=== PATIENT | female | born 1950 | race Caucasian/White ===

== ENCOUNTER 2025-03-20 14:18 | Outpatient (BNV) | payer MEDICARE, SELFPAY | END 2025-03-20 16:17 | PROVIDERS: Admitting Provider Psychiatry & Neurology Forensic Psychiatry; Visit Provider Student in an Organized Health Care Education/Training Program | DX: Z03.89 Encounter for observation for other suspected diseases and conditions ruled out (principal); Z96.5 Presence of tooth-root and mandibular implants | CPT/HCPCS: 70250; 71045; 74018 ==

== ENCOUNTER 2025-03-20 14:18 | Inpatient (IN) | payer MEDICARE, SELFPAY ==
--- OUTSIDE RECORDS SUMMARY | 2025-03-19 22:07 | XMS_ITS | Encounter Summary ---
Author Organization [facility] Address [address] [place] [id number] Care Team Providers Care Commissioner Of Conciliation Name Role Phone Marion Hooker MODEL BUILDER Primary Care Provider Reason for Visit * Reason Comments Behavioral Health Encounter Details Date Type Department Care Team (Late st Contact Info) Description 03/19/2025 10:07 PM EST - 03/20/2025 12:03 PM EST Emergency [facility] Emergency Department [address] [place] [id number] Zay Cochran MD [facility] Emergency Department [address] [place] [id number] Mild recurrent major depression (Primary Dx) Discharge Disposition: Psychiatric Hospital Social History Tobacco Use Types Packs/Day Years Used Date Smoking Tobacco: Former Cigarettes 1 15 1 967 - 1981 Smokeless Tobacco: Never Tobacco Cessation:Counseling Given: Not Answered Alcohol Use Standard Drinks/Week Comments Not Currently 0 (1 standard drink = 0.6 oz pur e alcohol) Comments Unknown Sex and Gender Information Value Date Recorded Sex Assigned at Female 03/11/2025 1:06 PM EST Legal Sex Female 12:08 PM EDT Gender Identity Female 03/11/2025 1:06 PM EST Sexual Orientation Not on file documented as of this encounter Last Filed Vital Signs Vital Sign Reading Time Taken Comments Blood Pressure 160/105 03/19/2025 9:43 PM EST Pulse 67 03/19/2025 9:43 PM EST Temperature 37 C (98.6 F) 03/19/2025 9:43 PM EST Respiratory Rate 18 03/19/2025 9:43 PM EST Oxygen Saturation 99% 03/19/2025 9:43 PM EST Inhaled Oxygen Concentration - - Weight 68.5 kg (151 lb) 03/19/2025 9:43 PM EST Height 170.2 cm (5' 7 ) 03/19/2025 9:43 PM EST Body Mass Index 23.65 03/19/2025 9:43 PM EST documented in this encounter Functional Status * Are you deaf or do you have serious difficulty hearing? Answer Date of Assessment Author No 03/19/2025 10:09 PM EST Maria Antonia Burger * Are you blind or do you have serious difficulty seeing, even when wearing glasses? Answer Date of Assessment Author No 03/19/2025 10:09 PM EST Maria Antonia Burger * Do you have serious difficulty walking or climbing stairs? Answer Date of Assessment Author Yes 03/19/2025 10:09 PM EST Maria Antonia Burger * Do you have difficulty dressing or bathing? Answer Date of Assessment Author No 03/19/2025 10:09 PM EST Maria Antonia Burger * Because of a physical, mental, or emotional condition, do you have difficulty doing errands alone such as visiting the doctor? Answer Date of Assessment Author No 03/19/2025 10:09 PM EST Maria Antonia Burger documented as of this encounter Mental Status * Because of a physical, mental, or emotional condition, do you have serious difficulty concentrating, remembering, or making decisions? Answer Entry Date Author No 03/19/2025 10:09 PM Maria Antonia Vera documented in this encounter Medications at Time of Discharge atorvaSTATin (LIPITOR) 20 MG tablet 20 MG PO DAILY tablet 10/25/2020 buPROPion (WELLBUTRIN XL) 300 MG 24 hr tablet 300 MG PO DAILY tablet 10/25/2020 lamoTRIgine 200 mg TR24 200 MG PO DAILY tablet 10/25/2020 lisinopriL (ZestriL) 10 MG tablet 10 MG PO DAILY tablet 10/25/2020 documented as of this encounter Progress Notes * Zay Cochran MD - 03/20/2025 8:29 AM EST ED Course as of 03/20/25 0830 SunMar 20, 2025 0642 Pt slept through the night w/o incident. Pt will be signed out to denys HAIDER pending bed search [SB] 0707 Sign out: bed search [NH] 0830 Personal interpretation of EKG: Sinus bradycardia, rate 54, no STEMI [NH] ED Course User Index [NH] Zay Cochran MD [SB] Gissell Penn MD * Massiel Patton - 03/20/2025 7:15 AM EST Behavioral Health Crisis Consult- Contact Note Patient: Barbara Block : 1950 Admit Date: 03/19/2025 Date of Consult: 03/20/2025 Time of Consult: 7:15 AM Narrative: Bed Search Inpatient Unit Referral Date Referral Time Began Review Date Began Review Time Accepted Date Accepted Time Decline Date Decline Time Reason If Decline Comment [facility] Accessible 03/20/25 7:14 AM EST [facility] Accessible 03/20/25 7:14 AM EST [facility] Accessible 03/20/25 7:14 AM EST [facility] 03/20/25 7:14 AM EST [facility] 03/20/25 7:14 AM EST [facility] 03/20/25 7:15 AM EST [facility] Accessible 03/20/25 7:15 AM EST [facility] Accessible 03/20/25 7:15 AM EST [facility] Accessible 03/20/25 7:15 AM EST [facility] 03/20/25 7:15 AM EST [facility] Accessible 03/20/25 7:15 AM EST * Camron Gastelum MS - 03/19/2025 11:05 PM EST This clinician called the ED to evaluated patient. ED states that they currently have one iPad and is currently in use. ED is requesting clinician to try later. documented in this encounter Consult Notes * Camron Gastelum MS - 03/19/2025 11:00 PM ESTAssociated Order(s): BEHAVIORAL HEALTH CRISIS EVALUATION Behavioral Health Crisis Consult - Initial Assessment Patient: Barbara Block : 1950 Admit Date: 03/19/2025 Date of Consult: 03/19/2025 Time of Consult: 2300 Consult Requested by: No att. providers found Reason for Consult: Reason for Consult: Barbara Block, a 74-year-old female, presents at [facility] ED with complaints of feeling depressed and having thoughts of suicide via shooting herself using a gun. Patient reports that she was recently humiliated in public. Patient reports that her (Yobani [phone]). Patient appears anxious and states I don't want to share with everyone in the hospital. Patient reports that she is at the hospital becuase I don't want to live anymore. I am thinking about doing something about that. She says that she recently had a public humiliation and is having a nervous breakdown. Patient says that she will have to buy a gun or take abunch of antidepressants ( which I have ). She reports that she has a history of cutting when she was younger. She denies having a history of suicide attempt. She states that she has a history of inpatient psych about 5 - 7 years ago at [facility]. She denies use of alcohol or drugs. She is on anti depressants. She seems to be having difficulties with memory recall and easily frustrated when she is unable to recall the names of her antidepressants. She states that she recently returned from [place]. She denies HI, AH, VH. She says that people do tap into her phone. Patient is alert and oriented x 3 and presents with organized thoughts and speech patterns with some paranoia. Given that patient is having active SI with plan and intent, she meets sec 12 criteria and thus clinician recommends inpatient psych placement. This clinician consulted with attending Mack Klein and supervisorWendy Smith. Both consuls support inpatient psych placement. Chief Complaint Patient presents with Behavioral Health History of Present Illness: Patient is a 74 y.o. female with past medical and psychiatric history as listed who presented to the hospital on 03/19/2025 for Behavioral Health. Behavioral Health is consulted for suicidal thoughts with plan. The patient is a 74-year-old female. Medical History: has no past medical history on file. has no past surgical history on file. 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 Her smoking use included cigarettes. She started smoking about 58 years ago. She has a 15 pack-year smoking history. She has never used smokeless tobacco. E-Cigarettes/Vaping Questions Responses E-Cigarette/Vaping Use Never User Other: reports no history of drug use. Addiction/Substance Use Substances last used: Never used Prescription Medications: In the past 12 months,have you used any prescription medications just for the feeling, more than prescribed or that were no prescribed for you?: No Substances: In the past 12 months, have you used any drugs?: No Medical and Psychiatric Consequences: Psychosocial Consequences: Social History: reports that she lives with her spouse Socioeconomic History Marital status: Employment Status: Retired Type of Residence: Private residence Children?: Yes Number of Children: 1 History: History status: No Personal History: History of trauma/significant life events/FRANCES?: Yes has no history on file for sexual activity. Family History: Family History[4] Family history of psychiatric illness?: Yes Family history of LB?: Yes Family history of suicidal ideation, attempt or completed suicide?: No Physical Exam: Patient Vitals for the past 24 hrs: BP Temp Temp src Pulse Resp SpO2 Height Weight 03/19/25 2143 (!) 160/105 98.6 ??F (37 ??C) Temporal 67 18 99 % 1.702 m (5' 7 ) 68.5 kg (151 lb) Mental Status Exam: MSE Mental Status Exam: Appearance: stated age; appropriate eye contact Behavior: cooperative Speech: regular rate, regular rhythm, and regular volume Language: Intact Mood: anxious, depressed Affect: Anxious Thought Process: organized, goal-directed, logical, concrete, intact, and linear Thought Content: Endorses Si with plan to take antidepressants or shoot self with a gun Hallucinations: absent Attention: WNL Concentration: WNL Orientation: Person, place, location, date, president Memory: Intact Fund of Knowledge: Intact Impulse control: fair Insight: Impaired Judgment: Impaired Labs, Imaging & Other Studies: Laboratory: Recent lab results have been reviewed and are notable for - see medical chart Results for orders placed or performed during the hospital encounter of 03/19/25 (from the past 24 hours) Basic Metabolic Panel Result Value Ref Range Sodium 138 136 - 145 mmol/L Potassium 3.8 3.4 - 5.1 mmol/L Chloride 103 98 - 107 mmol/L Total CO2/Bicarbonate 23 22 - 32 mmol/L Anion Gap 12 8 - 16 mmol/L BUN 22 5 - 23 mg/dL Creatinine, Blood 0.70 0.40 - 1.00 mg/dL Glucose, Blood 97 74 - 118 mg/dL Calcium 9.7 8.6 - 10.2 mg/dL Estimated GFR(CKD-EPI) 90 mL/min/BSA Plasma Toxicology Screen Result Value Ref Range Acetaminophen Result,Blood <5 0 - 30 ug/mL Alcohol <10 <=10 mg/dL Salicylate Level, Blood <2 (L) 3 - 10 mg/dL CBC and Differential Result Value Ref Range WBC 10.83 4.00 - 11.00 K/uL RBC 4.30 3.80 - 5.40 M/uL Hemoglobin 13.2 11.0 - 16.0 g/dL Hematocrit 40.3 35.0 - 48.0 % MCH 30.7 27.0 - 34.0 pg MCHC 32.8 31.0 - 36.0 g/dL MCV 94 80 - 100 fL RDW 12.6 11.5 - 15.0 % RDW-SD 43.4 fL Platelet Count 214 130 - 400 K/uL MPV 10.1 9.0 - 11.0 fL Neutrophil 63.3 % Lymphocyte 25.8 % Monocyte 7.7 % Eosinophil 2.0 % Basophil 0.3 % Immature Granulocyte ([place], Myelo, Promyelocyte) 0.9 % Absolute Neutrophil Count 6.86 1.90 - 7.50 K/uL Absolute Immature Granulocyte ([place], Myelo, Promyelocyte) 0.10 0.00 - 0.10 K/uL Absolute Lymphocyte Count 2.79 1.20 - 3.40 K/uL Absolute Monocyte Count 0.83 (H) 0.00 - 0.70 K/uL Absolute Eosinophil Count 0.22 0.00 - 0.70 K/uL Absolute Basophil Count 0.03 0.00 - 0.10 K/uL Urinalysis with Reflex to Urine Culture Specimen: Urine, Mid-stream Collection Result Value Ref Range Color, Urine Yellow Yellow Clarity, Urine Clear Clear pH, Urine 5.0 5.0 - 8.0 Protein, Urine Negative Negative Glucose, Urine Negative Negative, 4+ Ketone, Urine Negative Negative Bilirubin, Urine Negative Negative Urobilinogen, Urine Normal Normal Blood, Urine 0.2 mg/dL (A) Negative Leukocyte Esterase, Urine Negative Negative Nitrite, Urine Negative Negative Specific [place], Urine 1.016 1.005 - 1.030 White Blood Cells, Urine 1-4 0-10 cells/HPF cells/HPF Red Blood Cell, Urine 0-2 <=2 cells/HPF Bacteria Urine None Seen None Seen Squamous Epithelial Cells None Seen None Seen, Few /HPF Renal Epithelial Cell None Seen None Seen Transitional Epithelial Cells None Seen None Seen EKG: No studies were reviewed. C-SSRS Screener and SAFE-T: [place] Suicide Severity Rating Scale (C-SSRS) Screener 1) In the past month, have you wished you were or wished you could go to sleep and not wake up?: Yes 2) In the past month, have you actually had any thoughts of killing yourself?: Yes 3) Have you been thinking about how you might do this? (Past 1 Month): Yes If yes, describe (Past 1 Month): Pt states she would shoot herself. States she does not own a gun at this time. 4) Have you had these thoughts and had some intention of acting on them or do you have some intention of acting on them? (Past 1 Month): (Not sure) 5) Have you started to work out or worked out the details of how to kill yourself? Did you intend to carry out this plan? (Past 1 Month): No 6a.) Have you ever done anything, started to do anything, or prepared to do anything to end your life?: No C-SSRS Screener Risk Level: Low History of Psychiatric Diagnosis:: Anxiety disorder/PTSD Presenting Symptoms: Anxiety and/or panic Family History: Mental illness Precipitants/ Stressors/ Interpersonal: History of trauma Change in Treatment: None Access to lethal methods: Ask specifically about presence or absence of a firearm in the home or ease of accessing: No Step 4: Guidelines to Determine Level of Risk and Develop Interventions to LOWER Risk Level Suicide Risk Level Determined by the Clinician : High Suicide Risk Rationale for Suicide Risk Level: SI with plan Management of Suicide Risk: Because the patient is actively suicidal, the patient will be further assessed for psychiatric inpatient level of care Assessment: Patient is a 74 y.o. female with past medical and psychiatric history as above now presents with suicidal thoughts. This clinician spoke with patient's spouse Yobani who reports that patient is having problems with her memory, unhappy most of the time and angry about everything. He says that recently returned from [place]. Barbara Block, a 74-year-old female, presents at [facility] ED with complaints of feeling depressed and having thoughts of suicide via shooting herself using a gun. Patient reports that she was recently humiliated in public. Patient reports that her (Yobani [phone]). Patient appears anxious and states I don't want to share with everyone in the hospital. Patient reports that she is at the hospital becuase I don't want to live anymore. I am thinking about doing something about that. She says that she recently had a public humiliation and is having a nervous breakdown. Patient says that she will have to buy a gun or take a bunch of antidepressants ( which I have ). She reports that she has a history of cutting when she was younger. She denies having a history of suicide attempt. She states that she has a history of inpatient psych about 5 - 7 years ago at [facility]. She denies use of alcohol or drugs. She is on antidepressants. She seems to be having diff iculties with memory recall and easily frustrated when she is unable to recall the names of her antidepressants. She states that she recently returned from [place]. She denies HI, AH, VH. She saysthat people do tap into her phone. Patient is alert and oriented x 3 and presents with organized thoughts and speech patterns with some paranoia. Given that patient is having active SI with plan and intent, she meets sec 12 criteria and thus clinician recommends inpatient psych placement. This clinician consulted with attending Mack Klein and converter supervisor Wendy Smith. Both consuls support inpatient psych placement. Recommendations: sec 12 inpatient psych placement Intervention and Stabilization Services Requested: Psych consult for med stabilization and Psych consult for diagnostic clarification Disposition Recommendation: Inpatient Level of Care Patient meets criteria for opioid use disorder (OUD): No Behavioral Health Diagnosis: F33 Unspecified Depressive Disorder Duration: Time Spent (min): 60 Discussed with Attendance Secretary: Yes, Attendance Secretary Name: Alcon Discussed with Medical Team: Yes . Mack Klein Signed by: Camron Gastelum MS [1] (Not in a hospital admission) [2] [3] [4] No family history on file. documented in this encounter ED Notes * Kenneth Jones RN - 03/19/2025 9:48 PM EST Pt states she had a publicly humilating event happen 2 months ago and since then has been very depressed and suicidal. Pt states she has a long hx of depression. States she has attempted to find a therapist but has been unable to do so. Pt states she plans to use a gun to end her life. Pt does not own a gun and would have to buy one to enact her plan. documented in this encounter Miscellaneous Notes * Psych Progress Note - Nicci Amezquita - 03/20/2025 7:55 AM EST Patient: Barbara Block Accepting Facility: [facility] Facility Address: [address], [address] [place] [address] Accepting MD: Dr. Kimberlyn Marrero Arrival Time: 1:30p Nurse to Nurse Report: They will call the ER AYLA, to be done before PT is sent Other Labs or Needs: Send EKG when it's done to fax: [phone] HCP/Guardian (if applicable): None Reason for Section 12: SI Information Given To: secure chat documented in this encounter Plan of Treatment Not on file documented as of this encounter Procedures Procedure Name Priority Date/Time Associated Diagnosis Comments ECG 12-LEAD STAT 03/20/2025 7:48 AM EST CORONAVIRUS SARS-COV-2, MOLECULAR STAT 03/20/2025 1:12 AM EST DRUG SCREEN, URINE STAT 03/19/2025 10 :52 PM EST URINALYSIS WITH URINE CULTURE REFLEX STAT 03/19/2025 10:52 PM EST CBC AND DIFFERENTIAL STAT 03/19/2025 10:46 PM EST TOXICOLOGY SCREEN, BLOOD STAT 03/19/2025 10:46 PM EST CBC AND DIFFERENTIAL STAT 03/19/2025 10:46 PM EST BASIC METABOLIC PANEL STAT 03/19/2025 10:46 PM EST documented in this encounter Results * ECG 12 lead (03/20/2025 7:48 AM EST) 03/20/2025 7:48 AM EST Narrative [facility] ECG - 03/20/2025 7:48 AM EST See ED note for ECG result information. us Zay Cochran MD ECG ORDERABLES Final Result [facility] ECG * Covid Swab (Rapid & Routine) (03/20/2025 1:12 AM EST) Coronavirus SARS-CoV-2 Negative Negative 03/20/2025 1:54 AM EST [facility] Respiratory NASOPHARYNGEAL SWAB / Unknown Collection / Unknown 03/20/2025 1:12 AM EST 03/20/2025 1:15 AM EST Narrative [facility] - 03/20/2025 1:54 AM EST Test performed with [employer] GeneXpert SARS-CoV-2 PCR assay which has received emergency use authorization (EUA) by the U.S. Food and Drug Administration. Negative results do not preclude SARS-CoV-2 infection and should not be used as the sole basis for treatment or other patient management decisions. us Mack Klein MODEL BUILDER BODY FLUIDS AND STOOLS ORDERAB LES Final Result [facility] [address] [place] [address], [place] * (ABNORMAL) Urinalysis with Reflex to Urine Culture (03/19/2025 10:52 PM EST) Color, Urine Yellow Yellow 03/19/2025 11:49 PM EST [facility] Clarity, Urine Clear Clear 03/19/2025 11:49 PM EST [facility] pH, Urine 5.0 5.0 - 8.0 03/19/2025 11:49 PM EST [facility] Protein, Urine Negative Negative 03/19/2025 11:49 PM EST [facility] Glucose, Urine Negative Negative, 4+ 03/19/2025 11:49 PM EST [facility] Ketone, Urine Negative Negative 03/19/2025 11:49 PM EST [facility] Bilirubin, Urine Negative Negative 03/19/20 11:49 PM EST [facility] Urobilinogen, Urine Normal Normal 03/19/2025 11:49 PM EST [facility] Blood, Urine 0.2 mg/dL(A) Negative 03/19/2025 11:49 PM EST [facility] Leukocyte Esterase, Urine Negative Negative 03/19/2025 11:49 PM EST [facility] Nitrite, Urine Negative Negative 03/19/2025 11:49 PM EST [facility] Specific [place], Urine 1.016 1.005 - 1.030 03/19/2025 11:49 PM EST [facility] White Blood Cells, Urine 1-4 0-10 cells/HPF cells/HPF 03/19/2025 11:49 PM EST [facility] Red Blood Cell, Urine 0-2 <=2 cells/HPF 03/19/2025 11:49 PM EST [facility] Bacteria Urine None Seen None Seen 03/19/2025 11:49 PM EST [facility] Squamous Epithelial Cells None Seen None Seen, Few /HPF 03/19/2025 11:49 PM EST [facility] Renal Epithelial Cell None Seen None Seen 03/19/2025 11:49 PM EST [facility] Transitional Epithelial Cells None Seen None Seen 03/19/2025 11:49 PM EST [facility] Urine MID-STREAM URINE SPECIMEN / Unknown Collection / Unknown 03/19/2025 10:52 PM EST 03/19/2025 11:07 PM EST us Mack Klein MODEL BUILDER URINE ORDERABLES Final Result Performing Organization Address City/State/[facility] Co de Phone Number [facility] [address] [place] [phone], * (ABNORMAL) Drug Screen, Urine (03/19/2025 10:52 PM EST) Pathologist [facility] Amphetamines Screen, Urine Negative Negative 03/20/2025 1:19 AM EST [facility] Barbiturates Screen, Urine Negative Negative 03/20/2025 1:19 AM EST [facility] Benzodiazepine Screen, Urine Negative Negative 03/20/2025 1:19 AM EST [facility] Buprenorphine Screen, Urine Negative Negative 03/20/2025 1:19 AM EST [facility] Cannabinoids Screen, Urine Presumptive Positive(A) Negative 03/20/2025 1:19 AM EST [facility] Cocaine Metabolite Screen, Urine Negative Negative 03/20/2025 1:19 AM EST [facility] Fentanyl Screen, Urine Negative Negative 03/20/2025 1:19 AM EST [facility] Methadone Metabolites Negative Negative 03/20/2025 1:19 AM EST [facility] Methadone Screen, Urine Negative Negative 03/20/2025 1:19 AM EST [facility] Opiates Screen, Urine Negative Negative 03/20/2025 1:19 AM EST [facility] Oxycodone Screen, Urine Negative Negative 03/20/2025 1:19 AM EST [facility] Phencyclidine Screen, Urine Negative Negative 03/20/2025 1:19 AM EST [facility] Creatinine, Jose Urine 65.1 No Established Reference Range mg/dL 03/20/2025 1:19 AM EST [facility] Comment 03/20/2025 1:19 AM EST [facility] Comment: The cut-off concentration for a positive result for each drug is listed below: Drug Cut-off value Amphetamines >1000 ng/mL Barbiturates >200 ng/mL Benzodiazepines >300 ng/mL Buprenorphine >10 ng/mL Cannabinoids >50 ng/mL Cocaine >300 ng/mL Fentanyl >2.0 ng/mL Opiates >300 ng/mL Phencyclidine >25 ng/mL Methadone >300 ng/mL Methadone Metabolites >100 ng/mL Oxycodone >100 ng/mL Tramadol >200 ng/mL This is only a screening; positive results are not confirmed by a second method; The results must be used for medical purposes only. Urine URINE SPECIMEN / Unknown Collection / Unknown 03/19/2025 10:52 PM EST 03/19/2025 11:07 PM EST us Mack Klein NP URINE ORDERABLES Final Result Performing Organization Address [facility]/State/[facility] Co de Phone Number [facility] [address] [place] [address], * (ABNORMAL) CBC and Differential (03/19/2025 10:46 PM EST) WBC 10.83 4.00 - 11.00 K/uL 03/19/2025 11:17 PM EST [facility] RBC 4.30 3.80 - 5.40 M/uL 03/19/2025 11:17 PM EST [facility] Hemoglobin 13.2 11.0 - 16.0 g/dL 03/19/2025 11:17 PM EST [facility] Hematocrit 40.3 35.0 - 48.0 % 03/19/2025 11:17 PM EST [facility] MCH 30.7 27.0 - 34.0 pg 03/19/2025 11:17 PM EST [facility] MCHC 32.8 31.0 - 36.0 g/dL 03/19/2025 11:17 PM EST [facility] MCV 94 80 - 100 fL 03/19/2025 11:17 PM EST [facility] RDW 12.6 11.5 - 15.0 % 03/19/2025 11:17 PM EST [facility] RDW-SD 43.4 fL 03/19/2025 11:17 PM EST [facility] Platelet Count 214 130 - 400 K/uL 03/19/2025 11:17 PM EST [facility] MPV 10.1 9.0 - 11.0 fL 03/19/2025 11:17 PM EST [facility] Neutrophil 63.3 % 03/19/2025 11:17 PM EST [facility] Lymphocyte 25.8 % 03/19/2025 11:17 PM EST [facility] Monocyte 7.7 % 03/19/2025 11:17 PM EST [facility] Eosinophil 2.0 % 03/19/2025 11:17 PM EST [facility] Basophil 0.3 % 03/19/2025 11:17 PM EST [facility] Immature Granulocyte ([place], Myelo, Promyelocyte) 0.9 % 03/19/2025 11:17 PM EST [facility] Absolute Neutrophil Count 6.86 1.90 - 7.50 K/uL 03/19/2025 11:17 PM EST [facility] Absolute Immature Granulocyte ([place], Myelo, Promyelocyte) 0.10 0.00 - 0.10 K/uL 03/19/2025 11:17 PM EST [facility] Absolute Lymphocyte Count 2.79 1.20 - 3.40 K/uL 03/19/2025 11:17 PM EST [facility] Absolute Monocyte Count 0.83(H) 0.00 - 0.70 K/uL 03/19/2025 11:17 PM EST [facility] Absolute Eosinophil Count 0.22 0.00 - 0.70 K/uL 03/19/2025 11:17 PM EST [facility] Absolute Basophil Count 0.03 0.00 - 0.10 K/uL 03/19/2025 11:17 PM EST [facility] Blood PERIPHERAL BLOOD SPECIMEN / Unknown Venipuncture / Unknown 03/19/2025 10:46 PM EST 03/19/2025 11:06 PM EST Mack Klein MODEL BUILDER LAB BLOOD ORDERABLES Final Res ult Performing Organization Address [facility] Co de Phone Number [facility] [address] [place] [address], * (ABNORMAL) Plasma Toxicology Screen (03/19/2025 10:46 PM EST) Acetaminophen Result,Blood <5 0 - 30 ug/mL 03/19/2025 11:37 PM EST [facility] Alcohol <10 <=10 mg/dL 03/19/2025 11:37 PM EST [facility] Salicylate Level, Blood <2(L) 3 - 10 mg/dL 03/19/2025 11:37 PM EST [facility] Blood PERIPHERAL BLOOD SPECIMEN / Unknown Venipuncture / Unknown 03/19/2025 10:46 PM EST 03/19/2025 11:06 PM EST Mack Ernie MODEL BUILDER LAB BLOOD ORDERABLES Final Res ult Performing Organization Address [facility] Co de Phone Number [facility] [address] [place] [address], * Basic Metabolic Panel (03/19/2025 10:46 PM EST) Sodium 138 136 - 145 mmol/L 03/19/2025 11:37 PM EST [facility] Potassium 3.8 3.4 - 5.1 mmol/L 03/19/2025 11:37 PM EST [facility] Chloride 103 98 - 107 mmol/L 03/19/2025 11:37 PM EST [facility] Total CO2/Bicarbonat e 23 22 - 32 mmol/L 03/19/2025 11:37 PM EST [facility] Anion Gap 12 8 - 16 mmol/L 03/19/2025 11:37 PM EST [facility] BUN 22 5 - 23 mg/dL 03/19/2025 11:37 PM EST [facility] Creatinine, Blood 0.70 0.40 - 1.00 mg/dL 03/19/2025 11:37 PM EST [facility] Glucose, Blood 97 74 - 118 mg/dL 03/19/2025 11:37 PM EST [facility] Calcium 9.7 8.6 - 10.2 mg/dL 03/19/2025 11:37 PM EST [facility] Estimated GFR(CKD-EPI) 90 mL/min/BSA 03/19/2025 11:37 PM EST [facility] Blood PERIPHERAL BLOOD SPECIMEN / Unknown Venipuncture / Unknown 03/19/2025 10:46 PM EST 03/19/2025 11:06 PM EST us Mack Klein NP LAB BLOOD ORDERABLES Final Res ult [facility] [address] [place] [address], documented in this encounter Visit Diagnoses Diagnosis 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
--- NOTE | ~2025-03-20 | XR_ITS ---
CLINICAL HISTORY: r/o foreign body for MRI 1 view abdomen Comparison: None provided Findings: No pneumoperitoneum or pneumatosis. No radiopaque foreign body. No acute fractures. IMPRESSION: No radiopaque foreign body identified. This document has been electronically signed by: Jane Hunter MD on 03/20/2025 20:00:39
--- NOTE | ~2025-03-20 | XR_ITS ---
CLINICAL HISTORY: r/o foreign body for MRI 2 view skull Comparison: None provided Findings: Bones are intact. Paranasal sinuses and mastoids are clear. No radiopaque foreign body. Dental implants. IMPRESSION: 1. No radiopaque foreign body. Dental implants. This document has been electronically signed by: Jane Hunter MD on 03/20/2025 19:59:36
--- NOTE | ~2025-03-20 | XR_ITS ---
CLINICAL HISTORY: r/o foreign body for MRI 1 view chest x-ray Comparison: None provided Findings: No consolidation or effusion. Normal size heart. No acute fracture. IMPRESSION: 1. No radiopaque foreign body. This document has been electronically signed by: Jane Hunter MD on 03/20/2025 20:01:01
--- NOTE | ~2025-03-20 | MR_ITS ---
CLINICAL HISTORY: progressive memory impairment MR Brain without gadolinium Comparison: CR - XR SKULL <4V - 03/20/25 18:25 EST Findings: No restricted diffusion. Prominence of the ventricles and sulci are present compatible with age-related volume loss. Scattered periventricular and deep white matter T2/FLAIR hyperintensities reflect chronic sequelae of microangiopathic etiology No intra-axial mass or hemorrhage. No midline shift. No hydrocephalus. Vascular flow voids are intact. The orbits are normal. The sinuses and mastoid air cells are clear. No focal bone lesion. IMPRESSION: No acute intracranial findings. Chronic age related changes, as above. This document has been electronically signed by: Bryan Smith MD on 03/21/2025 13:09:13
[2025-03-20 14:35] VITALS: BP 152/84; PULSE 73; RESP 17; TEMP 36.4; O2SAT 95
--- OUTSIDE RECORDS SUMMARY | 2025-03-20 14:45 | XMS_ITS | Encounter Summary ---
Author Organization [facility] Address [address] [place] [address] Care Team Providers Care Outside Sales Name Role Phone Marion Hooker NP Primary Care Provider Encounter Details Date Type Department Care Team (Latest Contact Info) Description 03/19/2025 Travel Social History Tobacco Use Types Packs/Day Years Used Date Smoking Tobacco: Former Cigarettes 1 15 1 967 - 1981 Smokeless Tobacco: Never Alcohol Use Standard Drinks/Week Comments Not Currently 0 (1 standard drink = 0.6 oz pur e alcohol) Comments Unknown Sex and Gender Information Value Date Recorded Sex Assigned at Female 03/11/2025 1:06 PM EST Legal Sex Female 12:08 PM EDT Gender Identity Female 03/11/2025 1:06 PM EST Sexual Orientation Not on file documented as of this encounter Plan of Treatment Not on file documented as of this encounter Visit Diagnoses Not on filedocumented in this encounter Care Teams Outside Sales Relationship Specialty Start Date End Date Marion Hooker NP [address] [facility] [address] [place] [address] PCP - General 11/20/23 documented as of this encounter
--- OUTSIDE RECORDS SUMMARY | 2025-03-20 14:45 | XMS_ITS | Clinical Summary ---
Author Organization [facility] Address [address] [place] [address] Care Team Providers Care Supervisor Silvering Department Name Role Phone Silvia Coolfer Laney ANIMAL CONTROL SUPERVISOR Primary Care Provider Allergies Active Allergy Reactions Criticality Noted Date Comments Morphine GI Intolerance Low Reaction Type: Allergy; Severity: Mild Propoxyphene Hcl Unknown Reaction Type: Allergy; Severity: Unknown Medications * This document contains information received from the source organization and may not represent a complete record from that organization. lamoTRIgine 200 mg TR24 200 MG PO DAILY tablet 10/25/2020 Active atorvaSTATin (LIPITOR) 20 MG tablet 20 MG PO DAILY tablet 10/25/2020 Active buPROPion (WELLBUTRIN XL) 300 MG 24 hr tablet 300 MG PO DAILY tablet 10/25/2020 Active lisinopriL (ZestriL) 10 MG tablet 10 MG PO DAILY tablet 10/25/2020 Active Active Problems Problem Noted Date Diagnosed Date Unspecified injury of thorax, initial encounter 07/27/2023 Overview (01/16/2024): Edited by TRINO PRESSLEY on 07/27/2023 Other injury of unspecified body region, initial encounter 05/01/2022 Overview (01/16/2024): Edited by ANGELIKA DIOP on 05/01/2022 Laceration without foreign b kai of other part of head, initial encounter 02/21/2021 Overview (01/16/2024): Edited by AGUSTIN SUÁREZ NP on 02/21/2021 Contusion of other part of head, initial encount er 02/21/2021 Overview (01/16/2024): Edited by AGUSTIN SUÁREZ NP on 02/21/2021 Unspecified fall, initial encounter 02/21/2021 Overview (01/16/2024): Edited by AGUSTIN SUÁREZ NP on 02/21/2021 Poisoning by unspecified franci gs, medicaments and biological substances, accidental (unintentional), initial encounter 04/19/2015 Overview (01/16/2024): Edited by ERNESTO WESTBROOK on 04/19/2015 Other symptoms and signs involving appearance an d behavior 04/16/2015 Overview (01/16/2024): Edited by REECE DUQUE on 04/16/2015 Poisoning by unspecified franci gs, medicaments and biological substances, accidental (unintentional), initial encounter 04/16/2015 Overview (01/16/2024): Edited by REECE DUQUE on 04/16/2015 Encounters Date Type Department Care Team Description 03/19/2025 10:07 PM EST - 03/20/2025 12:03 PM EST Emergency [facility] Emergency Department [address] [place] [phone] Zay Cochran MD Mild recurrent major depression (Primary Dx) [facility]charge [facility]position: [facility] 03/19/2025 Travel 03/11/2025 1:15 PM EST Lab [facility] Lab [address] [place] [phone] Francy Grove NP Depression, unspecified; Hypertension, essential; Hyperlipidemia 03/11/2025 Transcribe Orders [address] [phone] Francy Grove NP Depression, unspecified (Primary Dx); Hyperlipidemia; Hypertension, essential from Last 3 Months Immunizations Immunization Administration Dates Next Due Meningococcal Polysaccharide 12/20/2005 Social History Tobacco Use Types Packs/Day Years Used Date Smoking Tobacco: Former Cigarettes 1 15 1 967 - 1982 Smokeless Tobacco: Never Tobacco Cessation:Counseling Given: Not Answered Alcohol Use Standard Drinks/Week Comments Not Currently 0 (1 standard drink = 0.6 oz pur e alcohol) Comments Unknown Sex and Gender Information Value Date Recorded Sex Assigned at Female 03/11/2025 1:06 PM EST Legal Sex Female 12:08 PM EDT Gender Identity Female 03/11/2025 1:06 PM EST Sexual Orientation Not on file Last Filed Vital Signs Vital Sign Reading [...] Mass Index 23.65 03/19/2025 9:43 PM EST Plan of Treatment Health Maintenance Due Date Last Done Comments Depression Screening 1960 Hepatitis C Screening 1966 DTaP,Tdap,and Td Vaccines (1 - Tdap) 11/21/1967 Zoster Vaccine (1 of 2) 1998 Pneumococcal Vaccine: 50+ Years (2 of 2 - PCV20 or PCV21) 11/04/2016 11/05/2015 Lipid Panel 10/28/2024 10/29/2023, 07/0 04/2023, 10/11/2022, Additional history exists COVID-19 Vaccine ( season) 2025 02/26/2025, 02/03/2024, 02/17/2021, Additional history exists Blood Pressure 03/19/2026 03/19/2025 Meningococcal Vaccines Aged Out 12/20/2005 No lo nger eligible based on patient's age to complete this topic FIT Discontinued 10/15/2018, 01/28, 03/27/2016 Medicare Initial AWV [id number] Completed 11/10, 02/02/2017, 11/05/2015 Colonoscopy Discontinued 11/24/2020 Colorectal Cancer Screening Discontinued Breast Cancer Screening Discontinued 10/29/19 24, 10/29/2023, 10/29/2023, Additional history exists Osteoporosis Screening Completed 4, 2023, 12/16/2015 Influenza Vaccine Completed 02/26/2025, , 02/17/2021 CT Colonography Discontinued FOBT Discontinued Meningococcal B Vaccines Aged Out No longer eligible based on patient's age to complete this topic Multitarget Stool DNA (Cologuard) Discontinued Sigmoidoscopy Discontinued Procedures Procedure Name Priority Date/Time Associated Diagnosis Comments ECG 12-LEAD STAT 03/20/2025 7:48 AM EST CORONAVIRUS SARS-COV-2, MOLECULAR STAT 03/20/2025 1:12 AM EST URINALYSIS WITH URINE CULTURE REFLEX STAT 03/19/2025 10:52 PM EST DRUG SCREEN, URINE STAT 03/19/2025 10 :52 PM EST CBC AND DIFFERENTIAL STAT 03/19/2025 10:46 PM EST CBC AND DIFFERENTIAL STAT 03/19/2025 10:46 PM EST TOXICOLOGY SCREEN, BLOOD STAT 03/19/2025 10:46 PM EST BASIC METABOLIC PANEL STAT 03/19/2025 10:46 PM EST XR DXA BONE DENSITY HIP PELVIS OR SPINE AXIAL Routine 2023 12:00 AM EDT LIPID PANEL Routine 10/29/2023 2:33 PM EDT MAMMO SCREENING TOMOSYNTHESIS BILATERAL Routine 10/29/2023 12:00 AM EDT from Last 3 Months or Most Recently Relevant to Health Maintenance Results * ECG 12 lead (03/20/2025 7:48 AM EST) 03/20/2025 7:48 AM EST Narrative [facility] ECG - 03/20/2025 7:48 AM EST See ED note for ECG result information. Zay Cochran MD ECG ORDERABLES Final Result Performing Organization Address [facility] Co de Phone Number [facility] ECG * Covid Swab (Rapid & Routine) (03/20/2025 1:12 AM EST) Coronavirus SARS-CoV-2 Negative Negative 03/20/2025 1:54 AM EST [facility] Respiratory NASOPHARYNGEAL SWAB / Unknown Collection / Unknown 03/20/2025 1:12 AM EST 03/20/2025 1:15 AM EST Narrative [facility] - 03/20/2025 1:54 AM EST Test performed with idemama GeneXpert SARS-CoV-2 PCR assay which has received emergency use authorization (EUA) by the U.S. Food and Drug Administration. Negative results do not preclude SARS-CoV-2 infection and should not be used as the sole basis for treatment or other patient management decisions. Mack Klein NP BODY FLUIDS AND STOOLS ORDERAB LES Final Result Performing Organization Address [facility] Co de Phone Number [facility] [address] [place] [address], [place] * (ABNORMAL) Drug Screen, Urine (03/19/2025 10:52 PM EST) Amphetamines Screen, Urine Negative Negative 03/20/2025 1:19 AM EST [facility] Barbiturates Screen, Urine Negative Negative 03/20/2025 1:19 AM EST [facility] Benzodiazepine Screen, Urine Negative Negative 03/20/2025 1:19 AM EST [facility] Buprenorphine Screen, Urine Negative Negative 03/20/2025 1:19 AM EST [facility] Cannabinoids Screen, Urine Presumptive Positive(A) Negative 03/20/2025 1:19 AM EST [facility] Cocaine Metabolite Screen, Urine Negative Negative 03/20/2025 1:19 AM EST [facility] Fentanyl Screen, Urine Negative Negative 03/20/2025 1:19 AM EST [facility] Methadone Metabolites Negative Negative 03/20/2025 1:19 AM EST [facility] Methadone Screen, Urine Negative Negative 03/20/2025 1:19 AM EST [facility] Opiates Screen, Urine Negative Negative 03/20/2025 1:19 AM EST [facility] Oxycodone Screen, Urine Negative Negative 03/20/2025 1:19 AM EST [facility] Phencyclidine Screen, Urine Negative Negative 03/20/2025 1:19 AM EST [facility] Creatinine, Jose Urine 65.1 No Established Reference Range mg/dL 03/20/2025 1:19 AM EST [facility] Comment 03/20/2025 1:19 AM EST [facility] Comment: The cut-off concentration for a [...] 03/19/2025 11:07 PM EST us Mack Klein ANIMAL CONTROL SUPERVISOR URINE ORDERABLES Final Result [facility] [address] [place] [address], [place] * (ABNORMAL) Urinalysis with Reflex to Urine Culture (03/19/2025 10:52 PM EST) Color, Urine Yellow Yellow 03/19/2025 11:49 PM EST [facility] Clarity, Urine Clear Clear 03/19/2025 11:49 PM EST [facility] pH, Urine 5.0 5.0 - 8.0 03/19/2025 11:49 PM EST [facility] Protein, Urine Negative Negative 03/19/2025 11:49 PM EST [facility] Glucose, Urine Negative Negative, 4+ 03/19/2025 11:49 PM EST [facility] Ketone, Urine Negative Negative 03/19/2025 11:49 PM EST [facility] Bilirubin, Urine Negative Negative 03/19/20 11:49 PM EST [facility] Urobilinogen, Urine Normal Normal 03/19/2025 11:49 PM EST [facility] Blood, Urine 0.2 mg/dL(A) Negative 03/19/2025 11:49 PM EST [facility] Leukocyte Esterase, Urine Negative Negative 03/19/2025 11:49 PM EST [facility] Nitrite, Urine Negative Negative 03/19/2025 11:49 PM EST [facility] Specific [place], Urine 1.016 1.005 - 1.030 03/19/2025 11:49 PM EST [facility] White Blood Cells, Urine 1-4 0-10 cells/HPF cells/HPF 03/19/2025 11:49 PM EST [facility] Red Blood Cell, Urine 0-2 <=2 cells/HPF 03/19/2025 11:49 PM EST [facility] Bacteria Urine None Seen None Seen 03/19/2025 11:49 PM EST [facility] Squamous Epithelial Cells None Seen None Seen, Few /HPF 03/19/2025 11:49 PM EST [facility] Renal Epithelial Cell None Seen None Seen 03/19/2025 11:49 PM EST [facility] Transitional Epithelial Cells None Seen None Seen 03/19/2025 11:49 PM EST [facility] Urine MID-STREAM URINE SPECIMEN / Unknown Collection / Unknown 03/19/2025 10:52 PM EST 03/19/2025 11:07 PM EST us Mack Klein ANIMAL CONTROL SUPERVISOR URINE ORDERABLES Final Result Performing Organization Address City/State/[facility] Co de Phone Number [facility] [address] [place] [phone], [place] * (ABNORMAL) CBC and Differential (03/19/2025 10:46 PM EST) WBC 10.83 4.00 - 11.00 K/uL 03/19/2025 11:17 PM EST [facility] RBC 4.30 3.80 - 5.40 M/uL 03/19/2025 11:17 PM EST [facility] Hemoglobin 13.2 11.0 - 16.0 g/dL 03/19/2025 11:17 PM EST [facility] Hematocrit 40.3 35.0 - 48.0 % 03/19/2025 11:17 PM EST [facility] MCH 30.7 27.0 - 34.0 pg 03/19/2025 11:17 PM EST [facility] MCHC 32.8 31.0 - 36.0 g/dL 03/19/2025 11:17 PM EST [facility] MCV 94 80 - 100 fL 03/19/2025 11:17 PM EST [facility] RDW 12.6 11.5 - 15.0 % 03/19/2025 11:17 PM EST [facility] RDW-SD 43.4 fL 03/19/2025 11:17 PM EST [facility] Platelet Count 214 130 - 400 K/uL 03/19/2025 11:17 PM EST [facility] MPV 10.1 9.0 - 11.0 fL 03/19/2025 11:17 PM EST [facility] Neutrophil 63.3 % 03/19/2025 11:17 PM EST [facility] Lymphocyte 25.8 % 03/19/2025 11:17 PM EST [facility] Monocyte 7.7 % 03/19/2025 11:17 PM EST [facility] Eosinophil 2.0 % 03/19/2025 11:17 PM EST [facility] Basophil 0.3 % 03/19/2025 11:17 PM EST [facility] Immature Granulocyte (Marathon, Myelo, Promyelocyte) 0.9 % 03/19/2025 11:17 PM EST [facility] Absolute Neutrophil Count 6.86 1.90 - 7.50 K/uL 03/19/2025 11:17 PM EST [facility] Absolute Immature Granulocyte (Marathon, Myelo, Promyelocyte) 0.10 0.00 - 0.10 K/uL 03/19/2025 11:17 PM EST [facility] Absolute Lymphocyte Count 2.79 1.20 - 3.40 K/uL 03/19/2025 11:17 PM EST [facility] Absolute Monocyte Count 0.83(H) 0.00 - 0.70 K/uL 03/19/2025 11:17 PM EST [facility] Absolute Eosinophil Count 0.22 0.00 - 0.70 K/uL 03/19/2025 11:17 PM EST [facility] Absolute Basophil Count 0.03 0.00 - 0.10 K/uL 03/19/2025 11:17 PM EST [facility] Blood PERIPHERAL BLOOD SPECIMEN / Unknown Venipuncture / Unknown 03/19/2025 10:46 PM EST 03/19/2025 11:06 PM EST Mack Klein ANIMAL CONTROL SUPERVISOR LAB BLOOD ORDERABLES Final Res ult Performing Organization Address City/[facility]/ZIP Co de Phone Number [facility] [address] [place] [phone], * (ABNORMAL) Plasma Toxicology Screen (03/19/2025 10:46 PM EST) Acetaminophen Result,Blood <5 0 - 30 ug/mL 03/19/2025 11:37 PM EST [facility] Alcohol <10 <=10 mg/dL 03/19/2025 11:37 PM EST [facility] Salicylate Level, Blood <2(L) 3 - 10 mg/dL 03/19/2025 11:37 PM EST [facility] Blood PERIPHERAL BLOOD SPECIMEN / Unknown Venipuncture / Unknown 03/19/2025 10:46 PM EST 03/19/2025 11:06 PM EST Mack [facility] ANIMAL CONTROL SUPERVISOR LAB BLOOD ORDERABLES Final Res ult Performing Organization Address City/[facility]/ZIP Co de Phone Number [facility] [address] [place] [address], [place] * Basic Metabolic Panel (03/19/2025 10:46 PM EST) Sodium 138 136 - 145 mmol/L 03/19/2025 11:37 PM EST [facility] Potassium 3.8 3.4 - 5.1 mmol/L 03/19/2025 11:37 PM EST [facility] Chloride 103 98 - 107 mmol/L 03/19/2025 11:37 PM EST [facility] Total CO2/Bicarbonat e 23 22 - 32 mmol/L 03/19/2025 11:37 PM EST [facility] Anion Gap 12 8 - 16 mmol/L 03/19/2025 11:37 PM EST [facility] BUN 22 5 - 23 mg/dL 03/19/2025 11:37 PM EST [facility] Creatinine, Blood 0.70 0.40 - 1.00 mg/dL 03/19/2025 11:37 PM EST [facility] Glucose, Blood 97 74 - 118 mg/dL 03/19/2025 11:37 PM EST [facility] Calcium 9.7 8.6 - 10.2 mg/dL 03/19/2025 11:37 PM EST [facility] Estimated GFR(CKD-EPI) 90 mL/min/BSA 03/19/2025 11:37 PM EST [facility] Blood PERIPHERAL BLOOD SPECIMEN / Unknown Venipuncture / Unknown 03/19/2025 10:46 PM EST 03/19/2025 11:06 PM EST us Mack Klein ANIMAL CONTROL SUPERVISOR LAB BLOOD ORDERABLES Final Res ult [facility] [address] [place] [address], [place] * XR DXA Bone Density Hip Pelvis or Spine Axial (2023 12:00 AM EDT) Anatomical Region Laterality Modality Pelvis, Spine, Hip Radiographic Imaging 2023 2023 Impressions 2023 10:25 AM EDT FRAX 10 YEAR FRACTURE RISK: Major Osteoporortic Fracture is 10% Hip fracture 1.6 %. Lowest T score measures -1.1. BONE DENSITY GUIDELINES; The World Health Organization criteria for diagnosis in post menopausal females, or males age 50 and over, are as follows: Normal: T score above -1 standard deviation. Osteopenia: T score between -1 and -2.5 standard deviations. Osteoporosis: T score below -2.5 standard deviations. Severe Osteoporosis: T score below -2.5 standard deviations and a history of fracture. FRACTURE RISK; For every 1 standard deviation below young adult mean, fracture risk approximately doubles. Copies of the BMD Data Sheets have been attached for your files. PAGE 1 Signed Report (CONTINUED) DIAGNOSTIC IMAGING REPORT Name: [facility] Phys: MARION COOL NP [address] [place] [address] : 1950 Age: 73 Sex: [place] [address] Acct: [id number] Loc: RAD.A TEL: Exam Date: 2023 Status: REG REF [facility] Unit No: [id number] [facility] Reason For Exam: POSTMENOPAUSAL [facility] Ultrasound Exams: [id number] ABONE/BONE DENSITY AXIAL/HIP/SP Continued Electronically Signed: 2023 1442 Signed By: Augustin Shabazz Reported By: AUGUSTIN SHABAZZ MD CC: MARION COOL NP Technologist: CARLTON RODRÍGUEZ Taken Date/Time: 2023 (5496) Transcribed Date/Time: 2023 (3562) Rn Child: CHAZ Printed Date/Time: 12/09/2023 (5063) PAGE 2 Signed Report Narrative 2023 10:25 AM EDT DIAGNOSTIC IMAGING REPORT Name: [facility] Phys: MARION COOL NP [address] [place] [address] : 1950 Age: 73 [place]: [place] [address] Acct: [id number] Loc: RAD.A TEL: Exam Date: 2023 Status: GUIDO LYLES [facility] Unit No: [id number] [facility] Reason For Exam: POSTMENOPAUSAL [facility] Ultrasound Exams: [id number] ABONE/BONE DENSITY AXIAL/HIP/SP PROCEDURE: Bone densitometry: 2023 INDICATION: POSTMENOPAUSAL COMPARISON: None TECHNIQUE: DXA densitometry of the lumbar spine and left hip was performed utilizing a Hologic Discovery SL bone densitometer. FINDINGS: Calculated bone mineral density from L1 through L4 measures 0.971 g/cm2, T score -0.7, Z score 1.6. Bone density in the left femoral neck measures 0.723 g/cm2, T score -1.1, Z score 0.9. Procedure Note Augustin Shabazz MD - 03/04/2024 DIAGNOSTIC IMAGING REPORT Name: [facility] Phys: MARION COOL NP [address] [place] [address] : 1950 Age: 73 Sex:[place] Acct: [id number] Loc: RAD.A TEL: Exam Date: 2023 Status: JAVIER [facility] Unit No: [id number] [facility] Reason For Exam: POSTMENOPAUSAL [facility] Ultrasound Exams: [id number] ABONE/BONE DENSITY AXIAL/HIP/SP PROCEDURE: Bone densitometry: 2023 INDICATION: POSTMENOPAUSAL COMPARISON: None TECHNIQUE: DXA densitometry of the lumbar spine and left hip was performed utilizing a Hologic Discovery SL bone densitometer. FINDINGS: Calculated bone mineral density from L1 through L4 measures 0.971 g/cm2, T score -0.7, Z score 1.6. Bone density in the left femoral neck measures 0.723 g/cm2, T score -1.1, Z score 0.9. IMPRESSION: FRAX 10 YEAR FRACTURE RISK: Major Osteoporortic Fracture is 10% Hip fracture 1.6 %. Lowest T score measures -1.1. BONE DENSITY GUIDELINES; The World Health Organization criteria for diagnosis in post menopausal females, or males age 50 and over, are as follows: Normal: T score above -1 standard deviation. Osteopenia: T score between -1 and -2.5 standard deviations. Osteoporosis: T score below -2.5 standard deviations. Severe Osteoporosis: T score below -2.5 standard deviations and a history of fracture. FRACTURE RISK; For every 1 standard deviation below young adult mean, fracture risk approximately doubles. Copies of the BMD Data Sheets have been attached for your files. PAGE 1 Signed Report (CONTINUED) DIAGNOSTIC IMAGING REPORT Name: [facility] Phys: MARION COOL NP [address] [place] [address] : 1950 Age: 73 Sex:[place] [address] Acct: [id number] Loc: RAD.A TEL: Exam Date: 2023 Status: [facility] Unit No: [id number] [facility] Reason For Exam: POSTMENOPAUSAL [facility] Ultrasound Exams: [id number] ABONE/BONE DENSITY AXIAL/HIP/SP Continued Electronically Signed: 2023 1442 Signed By: Augustin Shabazz Reported By: AUGUSTIN SHABAZZ MD CC: MARION COOL NP Technologist: CARLTON RODRÍGUEZ Taken Date/Time: 2023 (5054) Transcribed Date/Time: 2023 (8761) Rn Child: CHAZ Printed Date/Time: 12/09/2023 (9297) PAGE 2 Signed Report Marion Cool NP IMG DIAGNOSTIC IMAGING ORDERABLES Final Result * Lipid Panel (10/29/2023 2:33 PM EDT) Cholesterol 187 0 - 200 mg/dL CONVERSION FROM [facility] Triglycerides 114 0 - 150 mg/dL CONVERSION FROM [facility] HDL Cholesterol 74 >=60 mg/dL CON VERSION FROM [facility] Direct LDL Cholesterol 99 0 - 100 mg/dL CONVERSION FROM [facility] Ratio Chol/HDL 3 0 - 5 CONVE RSION FROM [facility] 10/29/2023 2:33 PM EDT 10/29/2023 2:33 PM EDT Marion Cool NP LAB BLOOD ORDERABLES Fi nal Result CONVERSION FROM [facility] * Mammo Screening Tomosynthesis Bilateral (10/29/2023 12:00 AM EDT) Anatomical Region Laterality Modality Breast Bilateral Mammography 10/29/2023 10/29/2023 Narrative 10/29/2023 2:18 PM EDT DIAGNOSTIC IMAGING REPORT Name: [facility] Phys: MARION COOL NP [address] [place] [address] : 1950 Age: 72 Sex: [place] [address] Acct: [id number] Loc: RAD TEL: Exam Date: 10/29/2023 Status: REG REF [facility] Unit No: [id number] [facility] Reason For Exam: ROUTINE MAMMOGRAM [facility] Ultrasound Exams: [id number] ABBY/MAMM SCREENING 2D/3D W/CAD REASON FOR EXAM: screening, asymptomatic. PATIENT HISTORY: Patient is postmenopausal and is nulliparous. Benign excisional biopsy of the right breast, 1987. Baseline mammogram. RISK VALUE (s): Tyrer-Cuzick 10 Year: 4.5%, Tyrer-Cuzick Lifetime: 5.0%, Myriad Table: 1.5%, EPI 5 Year: 2.5%, NCI Lifetime: 5.8% PROCEDURE: Screening [facility] Mammogram: October 29, 2023 - Exam #: [id number] 2D/3D Procedure 3D Bilateral CC and MLO view(s) were taken. 2D Bilateral CC and MLO view(s) were taken. No prior studies available for comparison. There are scattered areas of fibroglandular density. No architectural distortion, masses, or suspicious microcalcifications. ACR BI-RADS Assessments: BI-RADS Category 1 (Negative) No mammographic evidence of malignancy. RECOMMENDATION: Routine screening mammogram in 1 year. A letter will be sent to the patient stating this recommendation. This patient's information was entered into a reminder system with a target due date for the next mammogram. PAGE 1 Signed Report (CONTINUED) DIAGNOSTIC IMAGING REPORT Name: [facility] Phys: MARION COOL NP [address] [place] [address] : 1950 Age: 72 Sex: [place] [address] Acct: [id number] Loc: RAD TEL: Exam Date: 10/29/2023 Status: REG REF [facility] Unit No: [id number] [facility] Reason For Exam: ROUTINE MAMMOGRAM [facility] Ultrasound Exams: [id number] [facility]/MAMM SCREENING 2D/3D W/CAD Continued Electronically Signed: 10/30/2023 1532 Reported By: DARIA TRUJILLO MD CC: MARION COOL NP Technologist: ALAINA LAI Taken Date/Time: 10/29/2023 (1418) Transcribed Date/Time: 10/30/2023 (1536) Rn Child: [id number] Printed Date/Time: 11/02/2023 (1126) PAGE 2 Signed Report Procedure Note Daria Trujillo MD - 03/04/2024 DIAGNOSTIC IMAGING REPORT Name: [facility] Phys: MARION COOL NP [address] [place] [address] : 1950 Age: 72 Sex:[place] [address] Acct: [id number] Loc: RAD TEL: Exam Date: 10/29/2023 [facility] Unit No: [id number] [facility] Reason For Exam: ROUTINE MAMMOGRAM [facility] Ultrasound Exams: [id number] ABBY/MAMM SCREENING 2D/3D W/CAD REASON FOR EXAM: screening, asymptomatic. PATIENT HISTORY: Patient is postmenopausal and is nulliparous. Benign excisional biopsy of the right breast, 1987. Baseline mammogram. RISK VALUE (s): Tyrer-Cuzick 10 Year: 4.5%, Tyrer-Cuzick Lifetime: 5.0%, Myriad Table: 1.5%, EPI 5 Year: 2.5%, NCI Lifetime: 5.8% PROCEDURE: Screening [facility] Mammogram: October 29, 2023 - Exam #: [id number] 2D/3D Procedure 3D Bilateral CC and MLO view(s) were taken. 2D Bilateral CC and MLO view(s) were taken. No prior studies available for comparison. There are scattered areas of fibroglandular density. No architectural distortion, masses, or suspicious microcalcifications. ACR BI-RADS Assessments: BI-RADS Category 1 (Negative) No mammographic evidence of malignancy. RECOMMENDATION: Routine screening mammogram in 1 year. A letter will be sent to the patient stating this recommendation. This patient's information was entered into a reminder system with a target due date for the next mammogram. PAGE 1 Signed Report (CONTINUED) DIAGNOSTIC IMAGING REPORT Name: [facility] Phys: MARION COOL NP [address] [place] [address] : 1950 Age: 72 Sex:[place] [address] Acct: [id number] Loc: RAD TEL: Exam Date: 10/29/2023 Status: [facility] Unit No: [id number] [facility] Reason For Exam: ROUTINE MAMMOGRAM [facility] Ultrasound Exams: [id number] ABBY/MAMM SCREENING 2D/3D W/CAD Continued Electronically Signed: 10/30/2023 1532 Reported By: DARIA TRUJILLO MD CC: MARION COOL NP Technologist: ALAINA LAI Taken Date/Time: 10/29/2023 (1418) Transcribed Date/Time: 10/30/2023 (1536) Rn Child: CHAZ Printed Date/Time: 11/02/2023 (1120) PAGE 2 Signed Report us Marion Cool NP IMG MAMMOGRAPHY ORDERAB LES Final Result from Last 3 Months or Most Recently Relevant to Health Maintenance Insurance [address] [place] [address] MEDICARE MEDICARE Member Subscriber Plan / Payer ( fective 2013-Present) Name:Barbara Block Member ID:[id number] Relation to Subscriber:Self Name:Barbara Block Subscriber ID:[id number] Payer ID:Not on file Group ID:Not on file Type:Traditional / Indemnity Address: [address] [place] [phone] [address] [place] [address] MEDICARE Care Teams Supervisor Silvering Department Relationship Specialty Start Date End Date Marion Cool NP [address] [facility] [address] [place] [address] PCP - General 11/20/23
--- OUTSIDE RECORDS SUMMARY | 2025-03-20 14:45 | XMS_ITS | Encounter Summary ---
Author Organization [facility] Address [address] [place] [address] Care Team Providers Care High Reach Operator Name Role Phone [place] Marion Laney PARTNERSHIP MARKETING MANAGER Primary Care Provider Encounter Details Date Type Department Care Team (Late st Contact Info) Description 03/11/2025 Transcribe Orders [facility] [address] [place] [address] [phone] Francy Grove NP [address] [place] [address] Depression, unspecified (Primary Dx); Hyperlipidemia; Hypertension, essential Social History Tobacco Use Types Packs/Day Years Used Date Smoking Tobacco: Never Assessed Comments Unknown Sex and Gender Information Value Date Recorded Sex Assigned at Female 03/11/2025 1:06 PM EST Legal Sex Female 12:08 PM EDT Gender Identity Female 03/11/2025 1:06 PM EST Sexual Orientation Not on file documented as of this encounter Plan of Treatment Scheduled Orders Name Type Priority Associated Diagnoses Orde r Schedule CBC and Differential Lab Panel Routine Depression, unspecified Expected: 03/11/2025 (Approximate), Expires: 03/11/2026 TSH with Reflex Lab Routine Depression, unspecified Expected: 03/11/2025 (Approximate), Expires: 03/11/2026 Vitamin D, 25-OH Lab Routine Depression, unspecified Expected: 03/11/2025 (Approximate), Expires: 03/11/2026 Comprehensive Metabolic Panel Lab Routine Hypertension, essential Expected: 03/11/2025 (Approximate), Expires: 03/11/2026 Lipid Panel Lab Routine Hyperlipidemia Expected: 03/11/2025 (Approximate), Expires: 03/11/2026 Hemoglobin A1C Lab Routine Hyperlipidemia Expected: 03/11/2025 (Approximate), Expires: 03/11/2026 documented as of this encounter Visit Diagnoses Diagnosis Depression, unspecified- Primary Hyperlipidemia Other and unspecified hyperlipidemia Hypertension, essential Unspecified essential hypertension documented in this encounter Care Teams High Reach Operator Relationship Specialty Start Date End Date Marion Hooker NP [address] [address] PCP - General 11/20/23 documented as of this encounter
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
--- OUTSIDE RECORDS SUMMARY | 2025-03-20 14:45 | XMS_ITS | Clinical Summary ---
Author Organization Formerly [facility] Address [address] [place] [address] Phone Care Team Providers Care Quiller Tender Name Role Phone Pcp, Unknown Primary Care Provider Unavailabl e Medications lamoTRIgine (LAMICTAL) 200 MG tablet Take 200 mg by mouth daily. Active buPROPion (WELLBUTRIN XL) 300 MG ER 24 hr tablet Take 300 mg by mouth daily. Active lisinopril (PRINIVIL,ZESTRI L) 10 MG tablet Take 10 mg by mouth daily. Active atorvastatin (LIPITOR) 20 MG tablet Take 20 mg by mouth daily. Active Family History Medical History Relation Comments Allergic rhinitis Mother Relation Status Comments Mother Social History Tobacco Use Types Packs/Day Years Used Date Smoking Tobacco: Former Cigarettes 0 05/29/1964 - 05/29/1980 Smokeless Tobacco: Never Alcohol Use Standard Drinks/Week Comments Never 0 (1 standard drink = 0.6 oz pur e alcohol) Education Answer Date Recorded Are you interested in more education? Not on brandt e 08/24/2022 Are you concerned about learning? Not on file 08/24/2022 No 08/24/2022 No 08/24/2022 Digital Access Answer Date Recorded No 09/25/2022 No 09/25/2022 Reliable internet access at home? Not on file 09/25/2022 Device with a working camera? Not on file Comments Unknown Sex and Gender Information Value Date Recorded Sex Assigned at Female 03/01/2020 3:44 PM EST Legal Sex Female 7:12 PM EST Gender Identity Female 03/01/2020 3:44 PM EST Sexual Orientation Bisexual 03/01/2020 3: 44 PM EST Plan of Treatment Health Maintenance Due Date Last Done Comments Adult Td,Tdap Booster 1948 CREATININE LEVEL 1948 LIPID PANEL 1948 POTASSIUM LEVEL 1948 DEPRESSION SCREENING 1960 SMOKING Hx and SMOKELESS TOB ACCO SCREENING 1961 HEPATITIS C SCREENING 1966 PNEUMOCOCCAL VACCINES (50+ y ears) (1 of 1 - PCV) 1998 ZOSTER VACCINES (1 of 2) 1998 OSTEOPOROSIS SCREENING INITI AL (ONE-TIME) 2013 RSV VACCINE (1 - 1-dose 75+ series) 11/21/2023 INFLUENZA VACCINE (#1) 2024 COVID-19 VACCINE (2 - 2024-2 6 season) 2024 06/12/2020 HEPATITIS A VACCINES Aged Out No long er eligible based on patient's age to complete this topic HIB VACCINES Aged Out No longer eligi ble based on patient's age to complete this topic MENINGOCOCCAL VACCINES (ACWY) Aged Out No longer eligible based on patient's age to complete this topic MENINGOCOCCAL VACCINES (B) Aged Out N o longer eligible based on patient's age to complete this topic Medical Devices Not on file Insurance MEDICARE PART A & B [facility] INDEMNITY MEDICARE PART A & B [facility] INDEMNITY MEDICARE PART A & B [facility] INDEMNITY MEDICARE PART A & B [facility] INDEMNITY MEDICARE PART A & B [facility] INDEMNITY MEDICARE PART A & B [facility] IN[facility] MEDIC[facility] A & B [facility] IN[facility] MEDICARE PART A & B [facility] [facility] OUT OF STATE INDEMNITY MEDICARE PART A & B [facility] INDEMNITY Care Teams Quiller Tender Relationship Specialty Start Date End Date Pcp, Unknown PCP - General 03/01/20 Additional Source Comments The information contained in this document represents components of the legal health record. It is not the complete legal health record.[facility]
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
--- OUTSIDE RECORDS SUMMARY | 2025-03-20 14:46 | XMS_ITS | Clinical Summary ---
Author Organization [facility] Address [address] [place] [address] Care Team Providers Care Buzzsaw Operator Name Role Phone Foreign Dobbins MD Unavailable [phone] Marion Hooker NP Primary Care Provider Medications atorvastatin (Lipitor) 20 mg tablet Take 20 mg by mouth in the morning. 06/09/2021 Active buPROPion XL (Wellbutrin XL) 300 mg 24 hr tablet Take 300 mg by mouth in the morning. 06/17/2021 Active esomeprazole (NexIUM) [address] capsule Take 20 mg by mouth at bedtime. 01/10/2021 Active famotidine (Pepcid) 20 mg tablet Take 20 mg by mouth at bedtime. 01/10/2021 Active lamoTRIgine (LaMICtal) 200 mg tablet Take 1 tablet by mouth at bedtime. 06/17/2021 Active lisinopril 10 mg tabletIndications :Essential hypertension Take 1 tablet (10 mg) by mouth in the morning. 30 tablet 1 09/20/2021 Active Social History Tobacco Use Types Packs/Day Years Used Date Smoking Tobacco: Never Assessed Comments Unknown Sex and Gender Information Value Date Recorded Sex Assigned at Not on file Legal Sex Female 9:49 PM EST Gender Identity Female 10/18/2023 4:07 PM EDT Sexual Orientation Not on file Last Filed Vital Signs Vital Sign Reading Time Taken Comments Blood Pressure 138/78 02/28/2021 1:03 PM EDT Pulse 62 02/28/2021 1:03 PM EDT Temperature - - Respiratory Rate 16 02/28/2021 1:03 PM EDT Oxygen Saturation - - Inhaled Oxygen Concentration - - Weight - - Height 170.8 cm (5' 7.25 ) 02/28/2021 1:03 PM ED T Body Mass Index - - Plan of Treatment Not on file Insurance MEDICARE PART A AND B [facility] Care Teams Buzzsaw Operator Relationship Specialty Start Date End Date Marion Hooker NP [address] [facility] [address] [place] [address] PCP - General Family Medicine 10/18/23 Foreign Dobbins MD [address] [place] [address] [address] [place] [address] 06/03/21
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
[2025-03-20 17:18] VITALS: BMI 23.5
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
[2025-03-20 20:00] VITALS: BP 101/65; PULSE 66; RESP 16; TEMP 36.7; O2SAT 98
[2025-03-21 07:55] VITALS: BP 145/83; PULSE 89; RESP 18; TEMP 36.6; O2SAT 98
[2025-03-21] MEDS: buPROPion HCl XL 150 MG TAB.ER.24H PO (08:26)
[2025-03-21 09:01] LABS: Alanine Aminotransferase 22 U/L (0-31); Albumin Level 4.7 g/dL (3.5-5.0); Alkaline Phosphatase 102 U/L (39-117); Anion Gap 15 (12-20); Aspartate Amino Transferase 32 U/L (5-31); Blood Urea Nitrogen 15 mg/dL (9-16); Calcium 10.2 mg/dL (8.4-10.2); Carbon Dioxide 24 mmol/L (22-29); Chloride 105 mmol/L (96-108); Cholesterol 233 mg/dL (<200); Creatinine Clr Calc Pharmacy 66.5; Estimated Glomerular Filt Rate > 60; HDL Cholesterol 95 mg/dL (>40); Potassium 4.1 mmol/L (3.3-5.1); Sodium 140 mmol/L (135-145); Total Protein 8.0 g/dL (6.5-8.0); Triglycerides 91 mg/dL (<150)
[2025-03-21 09:15] LABS: Thyroid Stimulating Hormone 2.75 uIU/mL (0.32-4.0)
[2025-03-21 09:27] LABS: Folate 13.4 ng/mL (> or = 4.0); Vitamin B12 492 pg/mL (200-900)
--- NOTE | 2025-03-21 11:36 | HO.PSYCHPN ---
Subjective Subjective Date of Service: 03/21/25 Reason For Visit: Unspecified Depressive disorder Subjective Notes: Conditional Voluntary Interim History: Patient was seen and discussed in rounds today. Records and plans reviewed. She is settling into the unit. She is pleasant, social and interactive. Eating and sleeping adequately. Affect is bright. No active SI currently. No dangerous Review of Systems Review of Systems Yes all other systems are reviewed and are negative Mental Status Exam Mental Status Exam Narrative: Appearance: wearing hospital gown, fair hygiene, bruise on left eye corner, in NAD Behavior: cooperative Psychomotor: no agitation or retardation noted. Speech: mostly clear, normal rate/rhythm/volume, spontaneous TP: tangential at times TC: feeling depressed as she feels people don't treat older women right and people talking about her Mood: depressed Affect: congruent SI: continues to report, no intent to harm self on the unit HI: none VH/AH: no overt signs Delusions: seems paranoid delusions Insight/judgment: poor x 2. Memory/cog: alert, oriented to place, month, year and situation. Pending MOCA/ ACL Diagnostics Vital Signs (24Hr): Vital Signs - 24 hr 03/20/25 14:35 03/20/25 20:00 03/21/25 07:55 Temperature 97.6 F 98.1 F 97.8 F Pulse Rate 73 66 89 Respiratory Rate 17 16 18 Blood Pressure 152/84 H 101/65 145/83 H Pulse Oximetry 95 98 98 Oxygen Delivery Method Room Air Room Air Room Air BMI result Body Mass Index 23.5 Labs 03/21/25 08:04 Labs: Laboratory Results - last 48 hr 03/21/25 03/21/25 08:04 08:05 Sodium 140 Potassium 4.1 Chloride 105 Carbon Dioxide 24 Anion Gap 15 BUN 15 Creatinine 0.70 Estim Creat Clear Calc 66.5 Estimated GFR > 60 Random Glucose 92 Estimat Average Glucose 100 Hemoglobin A1c % 5.1 Calcium 10.2 Total Bilirubin 0.7 AST 32 H ALT 22 Alkaline Phosphatase 102 Total Protein 8.0 Albumin 4.7 Triglycerides 91 Cholesterol 233 H LDL Cholesterol, Calc 120 H HDL Cholesterol 95 Vitamin B12 492 Folate 13.4 TSH 2.75 Medications Medications Current Medications Acetaminophen (Acetaminophen 325 Mg Tablet) 650 mg PO Q6H PRN PRN Reason: Headache/Pain, Scale 1-10 Al Hydroxide/Mg Hydroxide (Magnesium Hydrox/Alum Hydrox 30 Ml Oral.Susp) 30 ml PO Q6H PRN PRN Reason: Heartburn/Nausea Atorvastatin Calcium (Atorvastatin Calcium 40 Mg Tablet) 40 mg PO BEDTIME [facility] Last Admin: 03/20/25 20:44 Dose: 40 mg Bupropion HCl (Bupropion Hcl Xl 150 Mg Tab.Er.24h) 150 mg PO DAILY [facility] Last Admin: 03/21/25 08:26 Dose: 150 mg Hydroxyzine HCl (Hydroxyzine Hcl 25 Mg Tablet) 25 mg PO Q6H PRN PRN Reason: mild anxiety Magnesium Hydroxide (Milk Of Magnesia 30 Ml Oral.Susp) 30 ml PO DAILY PRN PRN Reason: Constipation Nicotine Polacrilex (Nicotine Polacrilex 2 Mg Gum) 2 mg BUCCAL Q2H PRN PRN Reason: Nicotine Cravings Risperidone (Risperidone 0.5 Mg Tablet) 0.5 mg PO BID [facility] Last Admin: 03/21/25 08:25 Dose: 0.5 mg Trazodone HCl (Trazodone Hcl 50 Mg Tablet) 50 mg PO BEDTIME MRX1 PRN PRN Reason: Insomnia Allergies Allergies Allergy/AdvReac Type Severity Reaction Status Date / Time morphine AdvReac Severe Unknown Verified 03/20/25 14:52 propoxyphene AdvReac Severe Unknown Verified 03/20/25 14:52 Assessment & Plan Assessment & Plan (1) Psychosis: Status: Acute Code(s): F29 - Unspecified psychosis not due to a substance or known physiological condition Plan Mrs. Block is a 74 year-old woman with hx of depression, who presented to [facility] ED reporting depression and suicidal ideation in context of what seemed to be paranoid delusion of people talking about her. Per family, some recent episode of some psychosis back 5 years ago, clear memory/cognitive impairments for 3-4 years but no official dx or work up. It is unclear the etiology of later in life paranoid/psychosis in addition to cognitive/memory impairments, therefore differential include: AD (note that orientation seems to be intact which makes it less likely to be AD as paranoia in AD happens later in disease) or other type of dementia (primarily vascular dementia). Will order MRI with neuroquant. Pending MOCA/ACL. Will add tau 217 serum levels. Will also add ROSSI to rule out autoimmune condition. B12, folate levels also ordered. certainly heavy use of canabis does not help with psychosis/paranoia. CBC and CMP, UA all unremarkable and non contributory. Utox positive for cannabis. PLAN 1. Admit to S1, CV 2. start risperidone 0.5mg po BID. decrease wellbutrin 150mg po daily as it can worsened psychosis. 3. MRI w/neuroquant, serum [id number] (r/o atypical presentation of AD), ROSSI, B12, TSH. 4. OT assessment 5. aftercare planning 03/21:Continue current regimen and plans Reason for continued inpatient stay Substantial Risk for: harm to self and med/psych decompensation Time Spent With Patient Time: Total time managing care of this patient today ____ minutes.
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
[2025-03-21 20:00] VITALS: BP 149/80; PULSE 76; RESP 16; TEMP 36.8; O2SAT 98
[2025-03-22 07:52] VITALS: BP 123/78; PULSE 70; RESP 18; TEMP 36.2; O2SAT 97
[2025-03-22] MEDS: buPROPion HCl XL 150 MG TAB.ER.24H PO (08:12)
--- NOTE | 2025-03-22 09:35 | PC.NURSE ---
pt reporting 9/10 anxiety, yelling, banging on wall, stating no-one is helping me here , Redirected patient with good effect. Atarax given with positive effect. pt reading in her room.
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
[2025-03-22 20:00] VITALS: BP 125/82; PULSE 76; RESP 18; TEMP 36.3; O2SAT 98
[2025-03-23 08:00] VITALS: BP 143/88; PULSE 68; RESP 15; TEMP 37; O2SAT 98
[2025-03-23] MEDS: buPROPion HCl XL 150 MG TAB.ER.24H PO (09:17)
--- NOTE | 2025-03-23 10:00 | P.PNPSI_ITS ---
Subjective Subjective Date of Service: 03/23/25 Reason For Visit: Unspecified Depressive disorder Subjective Notes: Conditional Voluntary Interim History: Pt reports she is feeling calmer, she states less bitchy. She reports less depressed mood and no suicidal ideation. She does report that it's hard to be an older woman and people see you as occupying space. She does not appear internally preoccupied. Less insistence on events that happened in November or December. She has been visible on the unit. Pending MOCA/ACL. MRI completed but pending neuroquant analysis. ROSSI, serum tau 217 pending as work up for dementia. Mental Status Exam Mental Status Exam Narrative: Appearance: wearing hospital gown, fair hygiene, bruise on left eye corner, in NAD Behavior: cooperative Psychomotor: no agitation or retardation noted. Speech: mostly clear, normal rate/rhythm/volume, spontaneous TP: tangential at times TC: feeling depressed as she feels people don't treat older women right and people talking about her Mood: better Affect: less irritable, less depressed SI: denies HI: none VH/AH: no overt signs Delusions: less seems paranoid delusions Insight/judgment: poor x 2. Memory/cog: alert, oriented to place, month, year and situation. Pending MOCA/ ACL Diagnostics Vital Signs (24Hr): Vital Signs - 24 hr 03/22/25 20:00 03/23/25 08:00 Temperature 97.3 F 98.6 F Pulse Rate 76 68 Respiratory Rate 18 15 Blood Pressure 125/82 143/88 H Pulse Oximetry 98 98 Oxygen Delivery Method Room Air Room Air BMI result Body Mass Index 23.5 Labs 03/21/25 08:04 Medications Medications Current Medications Acetaminophen (Acetaminophen 325 Mg Tablet) 650 mg PO Q6H PRN PRN Reason: Headache/Pain, Scale 1-10 Al Hydroxide/Mg Hydroxide (Magnesium Hydrox/Alum Hydrox 30 Ml Oral.Susp) 30 ml PO Q6H PRN PRN Reason: Heartburn/Nausea Atorvastatin Calcium (Atorvastatin Calcium 40 Mg Tablet) 40 mg PO BEDTIME [facility] Last Admin: 03/22/25 20:25 Dose: 40 mg Bupropion HCl (Bupropion Hcl Xl 150 Mg Tab.Er.24h) 150 mg PO DAILY [facility] Last Admin: 03/23/25 09:17 Dose: 150 mg Hydroxyzine HCl (Hydroxyzine Hcl 25 Mg Tablet) 25 mg PO Q6H PRN PRN Reason: mild anxiety Last Admin: 03/22/25 09:34 Dose: 25 mg Magnesium Hydroxide (Milk Of Magnesia 30 Ml Oral.Susp) 30 ml PO DAILY PRN PRN Reason: Constipation Nicotine Polacrilex (Nicotine Polacrilex 2 Mg Gum) 2 mg BUCCAL Q2H PRN PRN Reason: Nicotine Cravings Risperidone (Risperidone 0.5 Mg Tablet) 0.5 mg PO BID [facility] Last Admin: 03/23/25 09:17 Dose: 0.5 mg Trazodone HCl (Trazodone Hcl 50 Mg Tablet) 50 mg PO BEDTIME MRX1 PRN PRN Reason: Insomnia Last Admin: 03/22/25 20:25 Dose: 50 mg Allergies Allergies Allergy/AdvReac Type Severity Reaction Status Date / Time morphine AdvReac Severe Unknown Verified 03/20/25 14:52 propoxyphene AdvReac Severe Unknown Verified 03/20/25 14:52 Assessment & Plan Assessment & Plan (1) Psychosis: Status: Acute Code(s): F29 - Unspecified psychosis not due to a substance or known physiological condition (2) Cognitive impairment: Status: Acute Code(s): R41.89 - Other symptoms and signs involving cognitive functions and awareness Assessment and Plan: pending work up including MRI reading with neuroquant, serum [id number] r/o AD, ROSSI also pending. Plan Mrs. Block is a 74 year-old woman with hx of depression, who presented to [facility] ED reporting depression and suicidal ideation in context of what seemed to be paranoid delusion of people talking about her. Per family, some recent episode of some psychosis back 5 years ago, clear memory/cognitive impairments for 3-4 years but no official dx or work up. It is unclear the etiology of later in life paranoid/psychosis in addition to cognitive/memory impairments, therefore differential include: AD (note that orientation seems to be intact which makes it less likely to be AD as paranoia in AD happens later in disease) or other type of dementia (primarily vascular dementia). Will order MRI with neuroquant. Pending MOCA/ACL. Will add tau 217 serum levels. Will also add ROSSI to rule out autoimmune condition. B12, folate levels also ordered. certainly heavy use of canabis does not help with psychosis/paranoia. CBC and CMP, UA all unremarkable and non contributory. Utox positive for cannabis. PLAN 1. Admit to S1, CV 2. start risperidone 0.5mg po BID. decrease wellbutrin 150mg po daily as it can worsened psychosis. 3. MRI w/neuroquant, serum [id number] (r/o atypical presentation of AD), ROSSI, B12, TSH. 4. OT assessment 5. aftercare planning 03/21:Continue current regimen and plans 03/23- calmer, less paranoid ideas. No SI/HI. tolerating risperidone 0.5mg po BID. pending MOCA/ACL. Reason for continued inpatient stay Substantial Risk for: harm to self and med/psych decompensation Time Spent With Patient Time: Total time managing care of this patient today ____ minutes.
[2025-03-23 15:18] VITALS: BP 119/74; PULSE 73
[2025-03-23 20:00] VITALS: BP 109/57; PULSE 70; RESP 16; TEMP 37; O2SAT 97
[2025-03-24 08:00] VITALS: BP 126/79; PULSE 74; TEMP 36.4; O2SAT 98
--- NOTE | 2025-03-24 09:22 | P.PNPSI_ITS ---
Subjective Subjective Date of Service: 03/24/25 Reason For Visit: Unspecified Depressive disorder Subjective Notes: Conditional Voluntary Interim History: Pt sleeping through the night. She reports feeling somewhat tired in the morning. Seems like she received trazodone. She denies SI/HI. She reports her mood seems better and she feels calmer. pending MOCA/ACL. MRI with neuroquant shows atrophy in hypoccampus in 3 percentile suggestive of AD. Pending [id number] Diagnostics Vital Signs (24Hr): Vital Signs - 24 hr 03/23/25 15:18 03/23/25 20:00 Temperature 98.6 F Pulse Rate 73 70 Respiratory Rate 16 Blood Pressure 119/74 109/57 L Pulse Oximetry 97 Oxygen Delivery Method Room Air BMI result Body Mass Index 23.5 Labs 03/21/25 08:04 Medications Medications Current Medications Acetaminophen (Acetaminophen 325 Mg Tablet) 650 mg PO Q6H PRN PRN Reason: Headache/Pain, Scale 1-10 Al Hydroxide/Mg Hydroxide (Magnesium Hydrox/Alum Hydrox 30 Ml Oral.Susp) 30 ml PO Q6H PRN PRN Reason: Heartburn/Nausea Atorvastatin Calcium (Atorvastatin Calcium 40 Mg Tablet) 40 mg PO BEDTIME JOHANNY Last Admin: 03/23/25 21:05 Dose: 40 mg Bupropion HCl (Bupropion Hcl Xl 150 Mg Tab.Er.24h) 150 mg PO DAILY JOHANNY Last Admin: 03/23/25 09:17 Dose: 150 mg Hydroxyzine HCl (Hydroxyzine Hcl 25 Mg Tablet) 25 mg PO Q6H PRN PRN Reason: mild anxiety Last Admin: 03/22/25 09:34 Dose: 25 mg Lisinopril (Lisinopril 5 Mg Tablet) 5 mg PO DAILY [facility]; Protocol Last Admin: 03/23/25 15:19 Dose: 5 mg Magnesium Hydroxide (Milk Of Magnesia 30 Ml Oral.Susp) 30 ml PO DAILY PRN PRN Reason: Constipation Nicotine Polacrilex (Nicotine Polacrilex 2 Mg Gum) 2 mg BUCCAL Q2H PRN PRN Reason: Nicotine Cravings Risperidone (Risperidone 0.5 Mg Tablet) 0.5 mg PO BID [facility] Last Admin: 03/23/25 21:05 Dose: 0.5 mg Trazodone HCl (Trazodone Hcl 50 Mg Tablet) 50 mg PO BEDTIME MRX1 PRN PRN Reason: Insomnia Last Admin: 03/23/25 21:05 Dose: 50 mg Allergies Allergies Allergy/AdvReac Type Severity Reaction Status Date / Time morphine AdvReac Severe Unknown Verified 03/20/25 14:52 propoxyphene AdvReac Severe Unknown Verified 03/20/25 14:52 Assessment & Plan Assessment & Plan (1) Psychosis: Status: Acute Code(s): F29 - Unspecified psychosis not due to a substance or known physiological condition (2) Cognitive impairment: Status: Acute Code(s): R41.89 - Other symptoms and signs involving cognitive functions and awareness Assessment and Plan: pending work up including MRI reading with neuroquant, serum [id number] r/o AD, ROSSI also pending. Plan Mrs. Block is a 74 year-old woman with hx of depression, who presented to [facility] ED reporting depression and suicidal ideation in context of what seemed to be paranoid delusion of people talking about her. Per family, some recent episode of some psychosis back 5 years ago, clear memory/cognitive impairments for 3-4 years but no official dx or work up. It is unclear the etiology of later in life paranoid/psychosis in addition to cognitive/memory impairments, therefore differential include: AD (note that orientation seems to be intact which makes it less likely to be AD as paranoia in AD happens later in disease) or other type of dementia (primarily vascular dementia). Will order MRI with neuroquant. Pending MOCA/ACL. Will add tau 217 serum levels. Will also add ROSSI to rule out autoimmune condition. B12, folate levels also ordered. certainly heavy use of canabis does not help with psychosis/paranoia. CBC and CMP, UA all unremarkable and non contributory. Utox positive for cannabis. PLAN 1. Admit to S1, CV 2. start risperidone 0.5mg po BID. decrease wellbutrin 150mg po daily as it can worsened psychosis. 3. MRI w/neuroquant, serum [id number] (r/o atypical presentation of AD), ROSSI, B12, TSH. 4. OT assessment 5. aftercare planning 03/21:Continue current regimen and plans 03/23- calmer, less paranoid ideas. No SI/HI. tolerating risperidone 0.5mg po BID. pending MOCA/ACL. 03/24 pending MOCA/ACL. MRI with neuroquant shows atrophy in hypoccampus in 3 percentile suggestive of AD. Pending serum [id number]/amyloid. We discussed starting aricept to slow down progression of possible AD. We also discussed switching wellbutrin to remeron as antidepressant. No behavioral concerns. Reason for continued inpatient stay Substantial Risk for: inability to function Time Spent With Patient Time: Total time managing care of this patient today ____ minutes.
[2025-03-24] MEDS: buPROPion HCl XL 150 MG TAB.ER.24H PO (09:25)
[2025-03-24 20:00] VITALS: BP 131/67; PULSE 84; RESP 18; TEMP 37.2; O2SAT 98
[2025-03-24 21:44] LABS: Anti Nuclear Antibody Screen POSITIVE (NEGATIVE); Anti Nuclear Antibody Titer 1:80 titer
[2025-03-25 08:05] VITALS: BP 129/62; PULSE 80; RESP 16; TEMP 36.3; O2SAT 97
[2025-03-25] MEDS: buPROPion HCl XL 150 MG TAB.ER.24H PO (08:30)
--- NOTE | 2025-03-25 11:34 | HO.PSYCHPN ---
Subjective Subjective Date of Service: 03/25/25 Reason For Visit: Unspecified Depressive disorder Subjective Notes: Conditional Voluntary Interim History: Pt had some difficulty sleeping through the night. Overall she reports her mood is better. She is less irritable, no overt psychosis. She is forgetful and asks same information several times. ACL 5 completed today. Review of Systems Review of Systems Pt denies any acute medical complaints. Yes all other systems are reviewed and are negative Mental Status Exam Mental Status Exam Narrative: Appearance: wearing hospital gown, fair hygiene, bruise on left eye corner, in NAD Behavior: cooperative Psychomotor: no agitation or retardation noted. Speech: mostly clear, normal rate/rhythm/volume, spontaneous TP: tangential at times TC: feeling depressed as she feels people don't treat older women right and people talking about her Mood: better Affect: less irritable, less depressed SI: denies HI: none VH/AH: no overt signs Delusions: less seems paranoid delusions Insight/judgment: poor x 2. Memory/cog: alert, oriented to place, month, year and situation. Pending MOCA/ ACL Diagnostics Vital Signs (24Hr): Vital Signs - 24 hr 03/24/25 20:00 03/25/25 08:05 Temperature 98.9 F 97.4 F Pulse Rate 84 80 Respiratory Rate 18 16 Blood Pressure 131/67 129/62 Pulse Oximetry 98 97 Oxygen Delivery Method Room Air Room Air BMI result Body Mass Index 23.5 Labs 03/21/25 08:04 Labs: Laboratory Results - last 48 hr 03/20/25 16:47 ROSSI Screen POSITIVE A ROSSI Titer 1:80 H ROSSI Titer 2 TNP ROSSI Titer 3 TNP ROSSI Pattern A ROSSI Pattern 2 TNP ROSSI Pattern 3 TNP Medications Medications Current Medications Acetaminophen (Acetaminophen 325 Mg Tablet) 650 mg PO Q6H PRN PRN Reason: Headache/Pain, Scale 1-10 Al Hydroxide/Mg Hydroxide (Magnesium Hydrox/Alum Hydrox 30 Ml Oral.Susp) 30 ml PO Q6H PRN PRN Reason: Heartburn/Nausea Atorvastatin Calcium (Atorvastatin Calcium 40 Mg Tablet) 40 mg PO BEDTIME JOHANNY Last Admin: 03/24/25 20:44 Dose: 40 mg Bupropion HCl (Bupropion Hcl Xl 150 Mg Tab.Er.24h) 150 mg PO DAILY JOHANNY Last Admin: 03/25/25 08:30 Dose: 150 mg Hydroxyzine HCl (Hydroxyzine Hcl 25 Mg Tablet) 25 mg PO Q6H PRN PRN Reason: mild anxiety Last Admin: 03/22/25 09:34 Dose: 25 mg Lisinopril (Lisinopril 5 Mg Tablet) 5 mg PO DAILY [facility]; Protocol Last Admin: 03/25/25 08:30 Dose: 5 mg Magnesium Hydroxide (Milk Of Magnesia 30 Ml Oral.Susp) 30 ml PO DAILY PRN PRN Reason: Constipation Mirtazapine (Mirtazapine 15 Mg Tablet) 15 mg PO BEDTIME JOHANNY Nicotine Polacrilex (Nicotine Polacrilex 2 Mg Gum) 2 mg BUCCAL Q2H PRN PRN Reason: Nicotine Cravings Risperidone (Risperidone 0.5 Mg Tablet) 0.5 mg PO BID JOHANNY Last Admin: 03/25/25 08:30 Dose: 0.5 mg Trazodone HCl (Trazodone Hcl 50 Mg Tablet) 50 mg PO BEDTIME MRX1 PRN PRN Reason: Insomnia Last Admin: 03/25/25 00:32 Dose: 50 mg Allergies Allergies Allergy/AdvReac Type Severity Reaction Status Date / Time morphine AdvReac Severe Unknown Verified 03/20/25 14:52 propoxyphene AdvReac Severe Unknown Verified 03/20/25 14:52 Assessment & Plan Assessment & Plan (1) Psychosis: Status: Acute Code(s): F29 - Unspecified psychosis not due to a substance or known physiological condition (2) Cognitive impairment: Status: Acute Code(s): R41.89 - Other symptoms and signs involving cognitive functions and awareness Assessment and Plan: pending work up including MRI reading with neuroquant, serum [id number] r/o AD, ROSSI also pending. Plan Mrs. Block is a 74 year-old woman with hx of depression, who presented to [facility] ED reporting depression and suicidal ideation in context of what seemed to be paranoid delusion of people talking about her. Per family, some recent episode of some psychosis back 5 years ago, clear memory/cognitive impairments for 3-4 years but no official dx or work up. It is unclear the etiology of later in life paranoid/psychosis in addition to cognitive/memory impairments, therefore differential include: AD (note that orientation seems to be intact which makes it less likely to be AD as paranoia in AD happens later in disease) or other type of dementia (primarily vascular dementia). Will order MRI with neuroquant. Pending MOCA/ACL. Will add tau 217 serum levels. Will also add ROSSI to rule out autoimmune condition. B12, folate levels also ordered. certainly heavy use of canabis does not help with psychosis/paranoia. CBC and CMP, UA all unremarkable and non contributory. Utox positive for cannabis. PLAN 1. Admit to S1, CV 2. start risperidone 0.5mg po BID. decrease wellbutrin 150mg po daily as it can worsened psychosis. 3. MRI w/neuroquant, serum [id number] (r/o atypical presentation of AD), ROSSI, B12, TSH. 4. OT assessment 5. aftercare planning 03/21:Continue current regimen and plans 03/23- calmer, less paranoid ideas. No SI/HI. tolerating risperidone 0.5mg po BID. pending MOCA/ACL. 03/24 pending MOCA/ACL. MRI with neuroquant shows atrophy in hypoccampus in 3 percentile suggestive of AD. Pending serum [id number]/amyloid. We discussed starting aricept to slow down progression of possible AD. We also discussed switching wellbutrin to remeron as antidepressant. No behavioral concerns. 03/25 remeron 15mg po qhs for sleep/mood. continue risperidone. ACL 5. Reason for continued inpatient stay Substantial Risk for: inability to function Time Spent With Patient Time: Total time managing care of this patient today ____ minutes.
[2025-03-25 20:00] VITALS: BP 141/66; PULSE 73; RESP 16; TEMP 36.7; O2SAT 98
[2025-03-26 04:44] LABS: ABETA 42/40 Ratio 0.181 (> OR = 0.170); Alzeheimer's Interpretation Low Likelihood; Tau protein phosphorylated 217 0.20 pg/mL (< OR = 0.15)
[2025-03-26 07:54] VITALS: BP 127/68; PULSE 64; RESP 16; TEMP 36.7; O2SAT 96
[2025-03-26] MEDS: buPROPion HCl XL 150 MG TAB.ER.24H PO (08:13)
--- NOTE | 2025-03-26 08:48 | HO.PSYCHPN ---
Subjective Subjective Date of Service: 03/26/25 Reason For Visit: Unspecified Depressive disorder Subjective Notes: Conditional Voluntary Interim History: Pt slept better last night. She reports feeling tired today but mood good. No SI/HI. No overt psychosis or delusional content. SBP elevated. continue to monitor. Review of Systems Review of Systems Pt denies any acute medical complaints. Yes all other systems are reviewed and are negative Mental Status Exam Mental Status Exam Narrative: Appearance: wearing hospital gown, fair hygiene, bruise on left eye corner, in NAD Behavior: cooperative Psychomotor: no agitation or retardation noted. Speech: mostly clear, normal rate/rhythm/volume, spontaneous TP: tangential at times TC: feeling depressed as she feels people don't treat older women right and people talking about her Mood: better Affect: less irritable, less depressed SI: denies HI: none VH/AH: no overt signs Delusions: less seems paranoid delusions Insight/judgment: poor x 2. Memory/cog: alert, oriented to place, month, year and situation. Diagnostics Vital Signs (24Hr): Vital Signs - 24 hr 03/25/25 20:00 03/26/25 07:54 Temperature 98.0 F 98.0 F Pulse Rate 73 64 Respiratory Rate 16 16 Blood Pressure 141/66 H 127/68 Pulse Oximetry 98 96 Oxygen Delivery Method Room Air Room Air BMI result Body Mass Index 23.5 Labs 03/21/25 08:04 Labs: Laboratory Results - last 48 hr 03/20/25 16:47 Amyloid Score (APS2) 0.0818 Abeta42/40 Ratio 0.181 ROSSI Screen POSITIVE A ROSSI Titer 1:80 H ROSSI Titer 2 TNP ROSSI Titer 3 TNP ROSSI Pattern A ROSSI Pattern 2 TNP ROSSI Pattern 3 TNP Amyloidosis Interpret Low Likelihood Amyloid Beta 42 Peptide 47 Amyloid Beta 40 Peptide 259 Phosphorylated Tau 217 0.20 H Medications Medications Current Medications Acetaminophen (Acetaminophen 325 Mg Tablet) 650 mg PO Q6H PRN PRN Reason: Headache/Pain, Scale 1-10 Al Hydroxide/Mg Hydroxide (Magnesium Hydrox/Alum Hydrox 30 Ml Oral.Susp) 30 ml PO Q6H PRN PRN Reason: Heartburn/Nausea Atorvastatin Calcium (Atorvastatin Calcium 40 Mg Tablet) 40 mg PO BEDTIME JOHANNY Last Admin: 03/25/25 21:21 Dose: 40 mg Bupropion HCl (Bupropion Hcl Xl 150 Mg Tab.Er.24h) 150 mg PO DAILY JOHANNY Last Admin: 03/26/25 08:13 Dose: 150 mg Hydroxyzine HCl (Hydroxyzine Hcl 25 Mg Tablet) 25 mg PO Q6H PRN PRN Reason: mild anxiety Last Admin: 03/22/25 09:34 Dose: 25 mg Lisinopril (Lisinopril 5 Mg Tablet) 5 mg PO DAILY JOHANNY; Protocol Last Admin: 03/26/25 08:13 Dose: 5 mg Magnesium Hydroxide (Milk Of Magnesia 30 Ml Oral.Susp) 30 ml PO DAILY PRN PRN Reason: Constipation Mirtazapine (Mirtazapine 15 Mg Tablet) 15 mg PO BEDTIME JOHANNY Last Admin: 03/25/25 21:21 Dose: 15 mg Nicotine Polacrilex (Nicotine Polacrilex 2 Mg Gum) 2 mg BUCCAL Q2H PRN PRN Reason: Nicotine Cravings Risperidone (Risperidone 0.5 Mg Tablet) 0.5 mg PO BID [facility] Last Admin: 03/26/25 08:13 Dose: 0.5 mg Trazodone HCl (Trazodone Hcl 50 Mg Tablet) 50 mg PO BEDTIME MRX1 PRN PRN Reason: Insomnia Last Admin: 03/25/25 21:21 Dose: 50 mg Allergies Allergies Allergy/AdvReac Type Severity Reaction Status Date / Time morphine AdvReac Severe Unknown Verified 03/20/25 14:52 propoxyphene AdvReac Severe Unknown Verified 03/20/25 14:52 Assessment & Plan Assessment & Plan (1) Psychosis: Status: Acute Code(s): F29 - Unspecified psychosis not due to a substance or known physiological condition (2) Cognitive impairment: Status: Acute Code(s): R41.89 - Other symptoms and signs involving cognitive functions and awareness Assessment and Plan: pending work up including MRI reading with neuroquant, serum [id number] r/o AD, ROSSI also pending. Plan Mrs. Block is a 74 year-old woman with hx of depression, who presented to [facility] ED reporting depression and suicidal ideation in context of what seemed to be paranoid delusion of people talking about her. Per family, some recent episode of some psychosis back 5 years ago, clear memory/cognitive impairments for 3-4 years but no official dx or work up. It is unclear the etiology of later in life paranoid/psychosis in addition to cognitive/memory impairments, therefore differential include: AD (note that orientation seems to be intact which makes it less likely to be AD as paranoia in AD happens later in disease) or other type of dementia (primarily vascular dementia). Will order MRI with neuroquant. Pending MOCA/ACL. Will add tau 217 serum levels. Will also add ROSSI to rule out autoimmune condition. B12, folate levels also ordered. certainly heavy use of canabis does not help with psychosis/paranoia. CBC and CMP, UA all unremarkable and non contributory. Utox positive for cannabis. PLAN 1. Admit to S1, CV 2. start risperidone 0.5mg po BID. decrease wellbutrin 150mg po daily as it can worsened psychosis. 3. MRI w/neuroquant, serum [id number] (r/o atypical presentation of AD), ROSSI, B12, TSH. 4. OT assessment 5. aftercare planning 03/21:Continue current regimen and plans 03/23- calmer, less paranoid ideas. No SI/HI. tolerating risperidone 0.5mg po BID. pending MOCA/ACL. 03/24 pending MOCA/ACL. MRI with neuroquant shows atrophy in hypoccampus in 3 percentile suggestive of AD. Pending serum [id number]/amyloid. We discussed starting aricept to slow down progression of possible AD. We also discussed switching wellbutrin to remeron as antidepressant. No behavioral concerns. 03/25 continue tx. 03/26 continue tx. Reason for continued inpatient stay Substantial Risk for: inability to function Time Spent With Patient Time: Total time managing care of this patient today ____ minutes.
[2025-03-26 13:41] VITALS: BMI 24.0
[2025-03-26 20:00] VITALS: BP 152/81; PULSE 66; RESP 18; TEMP 36.2; O2SAT 99
[2025-03-27 07:55] VITALS: BP 123/62; PULSE 67; RESP 18; TEMP 36.8; O2SAT 96
--- NOTE | 2025-03-27 08:28 | HO.PSYCHPN ---
Subjective Subjective Date of Service: 03/27/25 Reason For Visit: Unspecified Depressive disorder Subjective Notes: Conditional Voluntary Interim History: Pt reports she did not have a good night last night, tossing and turning.nursing reports pt slept 7hrs but had difficulty falling asleep. She reports feeling tired today but mood good. No SI/HI. No overt psychosis or delusional content. continue to monitor. Review of Systems Review of Systems Pt denies any acute medical complaints. Yes all other systems are reviewed and are negative Mental Status Exam Mental Status Exam Narrative: Appearance: wearing hospital gown, fair hygiene, bruise on left eye corner, in NAD Behavior: cooperative Psychomotor: no agitation or retardation noted. Speech: mostly clear, normal rate/rhythm/volume, spontaneous TP: tangential at times TC: feeling depressed as she feels people don't treat older women right and people talking about her Mood: better Affect: less irritable, less depressed SI: denies HI: none VH/AH: no overt signs Delusions: less seems paranoid delusions Insight/judgment: poor x 2. Memory/cog: alert, oriented to place, month, year and situation. Diagnostics Vital Signs (24Hr): Vital Signs - 24 hr 03/26/25 20:00 Temperature 97.2 F Pulse Rate 66 Respiratory Rate 18 Blood Pressure 152/81 H Pulse Oximetry 99 Oxygen Delivery Method Room Air BMI result Body Mass Index 24.0 Labs 03/21/25 08:04 Labs: Laboratory Results - last 48 hr 03/20/25 16:47 Amyloid Score (APS2) 0.0818 Abeta42/40 Ratio 0.181 ROSSI Titer 2 TNP ROSSI Titer 3 TNP ROSSI Pattern 2 TNP ROSSI Pattern 3 TNP Amyloidosis Interpret Low Likelihood Amyloid Beta 42 Peptide 47 Amyloid Beta 40 Peptide 259 Phosphorylated Tau 217 0.20 H Medications Medications Current Medications Acetaminophen (Acetaminophen 325 Mg Tablet) 650 mg PO Q6H PRN PRN Reason: Headache/Pain, Scale 1-10 Al Hydroxide/Mg Hydroxide (Magnesium Hydrox/Alum Hydrox 30 Ml Oral.Susp) 30 ml PO Q6H PRN PRN Reason: Heartburn/Nausea Atorvastatin Calcium (Atorvastatin Calcium 40 Mg Tablet) 40 mg PO BEDTIME [facility] Last Admin: 03/26/25 20:22 Dose: 40 mg Bupropion HCl (Bupropion Hcl Xl 150 Mg Tab.Er.24h) 150 mg PO DAILY [facility] Last Admin: 03/26/25 08:13 Dose: 150 mg Hydroxyzine HCl (Hydroxyzine Hcl 25 Mg Tablet) 25 mg PO Q6H PRN PRN Reason: mild anxiety Last Admin: 03/22/25 09:34 Dose: 25 mg Lisinopril (Lisinopril 5 Mg Tablet) 5 mg PO DAILY [facility]; Protocol Last Admin: 03/26/25 08:13 Dose: 5 mg Magnesium Hydroxide (Milk Of Magnesia 30 Ml Oral.Susp) 30 ml PO DAILY PRN PRN Reason: Constipation Mirtazapine (Mirtazapine 15 Mg Tablet) 15 mg PO BEDTIME JOHANNY Last Admin: 03/26/25 22:13 Dose: 15 mg Nicotine Polacrilex (Nicotine Polacrilex 2 Mg Gum) 2 mg BUCCAL Q2H PRN PRN Reason: Nicotine Cravings Risperidone (Risperidone 0.5 Mg Tablet) 0.5 mg PO BID [facility] Last Admin: 03/26/25 20:22 Dose: 0.5 mg Trazodone HCl (Trazodone Hcl 50 Mg Tablet) 50 mg PO BEDTIME MRX1 PRN PRN Reason: Insomnia Last Admin: 03/26/25 22:12 Dose: 50 mg Allergies Allergies Allergy/AdvReac Type Severity Reaction Status Date / Time morphine AdvReac Severe Unknown Verified 03/20/25 14:52 propoxyphene AdvReac Severe Unknown Verified 03/20/25 14:52 Assessment & Plan Assessment & Plan (1) Psychosis: Status: Acute Code(s): F29 - Unspecified psychosis not due to a substance or known physiological condition (2) Cognitive impairment: Status: Acute Code(s): R41.89 - Other symptoms and signs involving cognitive functions and awareness Assessment and Plan: pending work up including MRI reading with neuroquant, serum [id number] r/o AD, ROSSI also pending. Plan Mrs. Block is a 74 year-old woman with hx of depression, who presented to [facility] ED reporting depression and suicidal ideation in context of what seemed to be paranoid delusion of people talking about her. Per family, some recent episode of some psychosis back 5 years ago, clear memory/cognitive impairments for 3-4 years but no official dx or work up. It is unclear the etiology of later in life paranoid/psychosis in addition to cognitive/memory impairments, therefore differential include: AD (note that orientation seems to be intact which makes it less likely to be AD as paranoia in AD happens later in disease) or other type of dementia (primarily vascular dementia). Will order MRI with neuroquant. Pending MOCA/ACL. Will add tau 217 serum levels. Will also add ROSSI to rule out autoimmune condition. B12, folate levels also ordered. certainly heavy use of canabis does not help with psychosis/paranoia. CBC and CMP, UA all unremarkable and non contributory. Utox positive for cannabis. PLAN 1. Admit to S1, CV 2. start risperidone 0.5mg po BID. decrease wellbutrin 150mg po daily as it can worsened psychosis. 3. MRI w/neuroquant, serum [id number] (r/o atypical presentation of AD), ROSSI, B12, TSH. 4. OT assessment 5. aftercare planning 03/21:Continue current regimen and plans 03/23- calmer, less paranoid ideas. No SI/HI. tolerating risperidone 0.5mg po BID. pending MOCA/ACL. 03/24 pending MOCA/ACL. MRI with neuroquant shows atrophy in hypoccampus in 3 percentile suggestive of AD. Pending serum [id number]/amyloid. We discussed starting aricept to slow down progression of possible AD. We also discussed switching wellbutrin to remeron as antidepressant. No behavioral concerns. 03/25 continue tx. 03/26 continue tx. 03/27 continues to denied SI/HI. She presents less paranoid. may benefit from low dose lithium as staff reports periods of irritability. lithium 150mg po qhs. continue remeron 15mg po qhs. d/c wellbutrin. Reason for continued inpatient stay Substantial Risk for: inability to function Time Spent With Patient Time: Total time managing care of this patient today ____ minutes.
[2025-03-27] MEDS: buPROPion HCl XL 150 MG TAB.ER.24H PO (08:56)
[2025-03-27 20:00] VITALS: BP 112/56; PULSE 64; RESP 18; TEMP 36.4; O2SAT 96
[2025-03-28 08:00] VITALS: BP 147/75; PULSE 64; RESP 17; TEMP 36.3; O2SAT 98
--- NOTE | 2025-03-28 08:33 | P.PNPSI_ITS ---
Subjective Subjective Date of Service: 03/28/25 Reason For Visit: Unspecified Depressive disorder Subjective Notes: Conditional Voluntary Interim History: Pt sleeping through the night. Pt reports mood is good. no si/hi. no psychosis, calm, tolerating meds. visible pleasant. no behavioral concerns. Review of Systems Review of Systems Pt denies any acute medical complaints. Yes all other systems are reviewed and are negative Mental Status Exam Mental Status Exam Narrative: Appearance: wearing hospital gown, fair hygiene, bruise on left eye corner, in NAD Behavior: cooperative Psychomotor: no agitation or retardation noted. Speech: mostly clear, normal rate/rhythm/volume, spontaneous TP: tangential at times TC: feeling depressed as she feels people don't treat older women right and people talking about her Mood: better Affect: less irritable, less depressed SI: denies HI: none VH/AH: no overt signs Delusions: less seems paranoid delusions Insight/judgment: poor x 2. Memory/cog: alert, oriented to place, month, year and situation. Diagnostics Vital Signs (24Hr): Vital Signs - 24 hr 03/27/25 20:00 Temperature 97.6 F Pulse Rate 64 Respiratory Rate 18 Blood Pressure 112/56 L Pulse Oximetry 96 Oxygen Delivery Method Room Air BMI result Body Mass Index 24.0 Labs 03/21/25 08:04 Medications Medications Current Medications Acetaminophen (Acetaminophen 325 Mg Tablet) 650 mg PO Q6H PRN PRN Reason: Headache/Pain, Scale 1-10 Last Admin: 03/27/25 14:47 Dose: 650 mg Al Hydroxide/Mg Hydroxide (Magnesium Hydrox/Alum Hydrox 30 Ml Oral.Susp) 30 ml PO Q6H PRN PRN Reason: Heartburn/Nausea Atorvastatin Calcium (Atorvastatin Calcium 40 Mg Tablet) 40 mg PO BEDTIME JOHANNY Last Admin: 03/27/25 20:53 Dose: 40 mg Bupropion HCl (Bupropion Hcl Xl 150 Mg Tab.Er.24h) 150 mg PO DAILY JOHANNY Last Admin: 03/27/25 08:56 Dose: 150 mg Hydroxyzine HCl (Hydroxyzine Hcl 25 Mg Tablet) 25 mg PO Q6H PRN PRN Reason: mild anxiety Last Admin: 03/22/25 09:34 Dose: 25 mg Lisinopril (Lisinopril 5 Mg Tablet) 5 mg PO DAILY JOHANNY; Protocol Last Admin: 03/27/25 08:56 Dose: 5 mg Magnesium Hydroxide (Milk Of Magnesia 30 Ml Oral.Susp) 30 ml PO DAILY PRN PRN Reason: Constipation Mirtazapine (Mirtazapine 15 Mg Tablet) 15 mg PO BEDTIME REPLACED BY [facility] Last Admin: 03/27/25 20:53 Dose: 15 mg Nicotine Polacrilex (Nicotine Polacrilex 2 Mg Gum) 2 mg BUCCAL Q2H PRN PRN Reason: Nicotine Cravings Risperidone (Risperidone 0.5 Mg Tablet) 0.5 mg PO BID JOHANNY Last Admin: 03/27/25 20:53 Dose: 0.5 mg Trazodone HCl (Trazodone Hcl 50 Mg Tablet) 50 mg PO BEDTIME MRX1 PRN PRN Reason: Insomnia Last Admin: 03/26/25 22:12 Dose: 50 mg Allergies Allergies Allergy/AdvReac Type Severity Reaction Status Date / Time morphine AdvReac Severe Unknown Verified 03/20/25 14:52 propoxyphene AdvReac Severe Unknown Verified 03/20/25 14:52 Assessment & Plan Assessment & Plan (1) Psychosis: Status: Acute Code(s): F29 - Unspecified psychosis not due to a substance or known physiological condition (2) Cognitive impairment: Status: Acute Code(s): R41.89 - Other symptoms and signs involving cognitive functions and awareness Assessment and Plan: pending work up including MRI reading with neuroquant, serum [id number] r/o AD, ROSSI also pending. Plan Mrs. Block is a 74 year-old woman with hx of depression, who presented to [facility] ED reporting depression and suicidal ideation in context of what seemed to be paranoid delusion of people talking about her. Per family, some recent episode of some psychosis back 5 years ago, clear memory/cognitive impairments for 3-4 years but no official dx or work up. It is unclear the etiology of later in life paranoid/psychosis in addition to cognitive/memory impairments, therefore differential include: AD (note that orientation seems to be intact which makes it less likely to be AD as paranoia in AD happens later in disease) or other type of dementia (primarily vascular dementia). Will order MRI with neuroquant. Pending MOCA/ACL. Will add tau 217 serum levels. Will also add ROSSI to rule out autoimmune condition. B12, folate levels also ordered. certainly heavy use of canabis does not help with psychosis/paranoia. CBC and CMP, UA all unremarkable and non contributory. Utox positive for cannabis. PLAN 1. Admit to S1, CV 2. start risperidone 0.5mg po BID. decrease wellbutrin 150mg po daily as it can worsened psychosis. 3. MRI w/neuroquant, serum [id number] (r/o atypical presentation of AD), ROSSI, B12, TSH. 4. OT assessment 5. aftercare planning 03/21:Continue current regimen and plans 03/23- calmer, less paranoid ideas. No SI/HI. tolerating risperidone 0.5mg po BID. pending MOCA/ACL. 03/24 pending MOCA/ACL. MRI with neuroquant shows atrophy in hypoccampus in 3 percentile suggestive of AD. Pending serum [id number]/amyloid. We discussed starting aricept to slow down progression of possible AD. We also discussed switching wellbutrin to remeron as antidepressant. No behavioral concerns. 03/25 continue tx. 03/26 continue tx. 03/27 continues to denied SI/HI. She presents less paranoid. may benefit from low dose lithium as staff reports periods of irritability. lithium 150mg po qhs. continue remeron 15mg po qhs. d/c wellbutrin. 03/28 continues to report improvement in mood. no si/hi. no overt psychosis. taking medications. Reason for continued inpatient stay Substantial Risk for: inability to function Time Spent With Patient Time: Total time managing care of this patient today ____ minutes.
[2025-03-28 09:20] VITALS: BP 147/75
[2025-03-28] MEDS: buPROPion HCl XL 150 MG TAB.ER.24H PO (09:20)
[2025-03-28 20:00] VITALS: BP 112/55; PULSE 72; RESP 18; TEMP 36.9; O2SAT 97
[2025-03-29 08:00] VITALS: BP 138/83; PULSE 80; RESP 18; TEMP 36.7; O2SAT 98
[2025-03-29 08:27] VITALS: BP 138/83
[2025-03-29] MEDS: buPROPion HCl XL 150 MG TAB.ER.24H PO (08:27)
[2025-03-29] MEDS: Lidocaine 4 % Patch ADH..PATCH 1 PATCH TRANSDERMA (15:20)
[2025-03-29 20:00] VITALS: BP 144/73; PULSE 78; RESP 18; TEMP 36.7; O2SAT 98
--- NOTE | 2025-03-29 20:31 | P.PNPSI_ITS ---
Subjective Subjective Date of Service: 03/29/25 Reason For Visit: Unspecified Depressive disorder Subjective Notes: Conditional Voluntary Interim History: Pt sleeping through the night. Pt reports mood is good. no si/hi. no psychosis, calm, tolerating meds. visible pleasant. no behavioral concerns. Review of Systems Review of Systems Pt denies any acute medical complaints. Yes all other systems are reviewed and are negative Mental Status Exam Mental Status Exam Narrative: Appearance: wearing hospital gown, fair hygiene, bruise on left eye corner, in NAD Behavior: cooperative Psychomotor: no agitation or retardation noted. Speech: mostly clear, normal rate/rhythm/volume, spontaneous TP: tangential at times TC: feeling depressed as she feels people don't treat older women right and people talking about her Mood: better Affect: less irritable, less depressed SI: denies HI: none VH/AH: no overt signs Delusions: less seems paranoid delusions Insight/judgment: poor x 2. Memory/cog: alert, oriented to place, month, year and situation. Diagnostics Vital Signs (24Hr): Vital Signs - 24 hr 03/29/25 08:00 03/29/25 08:27 Temperature 98.0 F Pulse Rate 80 Respiratory Rate 18 Blood Pressure 138/83 138/83 Pulse Oximetry 98 Oxygen Delivery Method Room Air BMI result Body Mass Index 24.0 Labs 03/21/25 08:04 Medications Medications Current Medications Acetaminophen (Acetaminophen 325 Mg Tablet) 650 mg PO Q6H PRN PRN Reason: Headache/Pain, Scale 1-10 Last Admin: 03/29/25 08:32 Dose: 650 mg Al Hydroxide/Mg Hydroxide (Magnesium Hydrox/Alum Hydrox 30 Ml Oral.Susp) 30 ml PO Q6H PRN PRN Reason: Heartburn/Nausea Atorvastatin Calcium (Atorvastatin Calcium 40 Mg Tablet) 40 mg PO BEDTIME JOHANNY Last Admin: 03/28/25 20:22 Dose: 40 mg Bupropion HCl (Bupropion Hcl Xl 150 Mg Tab.Er.24h) 150 mg PO DAILY JOHANNY Last Admin: 03/29/25 08:27 Dose: 150 mg Hydroxyzine HCl (Hydroxyzine Hcl 25 Mg Tablet) 25 mg PO Q6H PRN PRN Reason: mild anxiety Last Admin: 03/22/25 09:34 Dose: 25 mg Lidocaine (Lidocaine 4 % Patch Adh..Patch) 1 patch TRANSDERMA DAILY JOHANNY; Protocol Last Admin: 03/29/25 15:20 Dose: 1 patch Lisinopril (Lisinopril 5 Mg Tablet) 5 mg PO DAILY JOHANNY; Protocol Last Admin: 03/29/25 08:27 Dose: 5 mg Magnesium Hydroxide (Milk Of Magnesia 30 Ml Oral.Susp) 30 ml PO DAILY PRN PRN Reason: Constipation Mirtazapine (Mirtazapine 15 Mg Tablet) 15 mg PO BEDTIME JOHANNY Last Admin: 03/28/25 20:23 Dose: 15 mg Nicotine Polacrilex (Nicotine Polacrilex 2 Mg Gum) 2 mg BUCCAL Q2H PRN PRN Reason: Nicotine Cravings Risperidone (Risperidone 0.5 Mg Tablet) 0.5 mg PO BID JOHANNY Last Admin: 03/29/25 08:27 Dose: 0.5 mg Trazodone HCl (Trazodone Hcl 50 Mg Tablet) 50 mg PO BEDTIME MRX1 PRN PRN Reason: Insomnia Last Admin: 03/26/25 22:12 Dose: 50 mg Allergies Allergies Allergy/AdvReac Type Severity Reaction Status Date / Time morphine AdvReac Severe Unknown Verified 03/20/25 14:52 propoxyphene AdvReac Severe Unknown Verified 03/20/25 14:52 Assessment & Plan Assessment & Plan (1) Psychosis: Status: Acute Code(s): F29 - Unspecified psychosis not due to a substance or known physiological condition (2) Cognitive impairment: Status: Acute Code(s): R41.89 - Other symptoms and signs involving cognitive functions and awareness Assessment and Plan: pending work up including MRI reading with neuroquant, serum [id number] r/o AD, ROSSI also pending. Plan Mrs. Block is a 74 year-old woman with hx of depression, who presented to [facility] ED reporting depression and suicidal ideation in context of what seemed to be paranoid delusion of people talking about her. Per family, some recent episode of some psychosis back 5 years ago, clear memory/cognitive impairments for 3-4 years but no official dx or work up. It is unclear the etiology of later in life paranoid/psychosis in addition to cognitive/memory impairments, therefore differential include: AD (note that orientation seems to be intact which makes it less likely to be AD as paranoia in AD happens later in disease) or other type of dementia (primarily vascular dementia). Will order MRI with neuroquant. Pending MOCA/ACL. Will add tau 217 serum levels. Will also add ROSSI to rule out autoimmune condition. B12, folate levels also ordered. certainly heavy use of canabis does not help with psychosis/paranoia. CBC and CMP, UA all unremarkable and non contributory. Utox positive for cannabis. PLAN 1. Admit to S1, CV 2. start risperidone 0.5mg po BID. decrease wellbutrin 150mg po daily as it can worsened psychosis. 3. MRI w/neuroquant, serum [id number] (r/o atypical presentation of AD), ROSSI, B12, TSH. 4. OT assessment 5. aftercare planning 03/21:Continue current regimen and plans 03/23- calmer, less paranoid ideas. No SI/HI. tolerating risperidone 0.5mg po BID. pending MOCA/ACL. 03/24 pending MOCA/ACL. MRI with neuroquant shows atrophy in hypoccampus in 3 percentile suggestive of AD. Pending serum [id number]/amyloid. We discussed starting aricept to slow down progression of possible AD. We also discussed switching wellbutrin to remeron as antidepressant. No behavioral concerns. 03/25 continue tx. 03/26 continue tx. 03/27 continues to denied SI/HI. She presents less paranoid. may benefit from low dose lithium as staff reports periods of irritability. lithium 150mg po qhs. continue remeron 15mg po qhs. d/c wellbutrin. 03/28 continues to report improvement in mood. no si/hi. no overt psychosis. 03/29 continue tx. plan for dc next week, will check lithium level 12/2 qhs with renal func and TSH. Reason for continued inpatient stay Substantial Risk for: inability to function Time Spent With Patient Time: Total time managing care of this patient today ____ minutes.
--- NOTE | 2025-03-30 07:54 | HO.PSYCHPN ---
Subjective Subjective Date of Service: 02/28/25 Reason For Visit: Unspecified Depressive disorder Subjective Notes: Conditional Voluntary Interim History: Patient indicated she was fine, no concerns/complaints. She then asked if I could discharge her today, and dismissed me when I told her I could not as arrangements not made for today. Review of Systems Review of Systems Pt denies any acute medical complaints. Yes all other systems are reviewed and are negative Mental Status Exam Mental Status Exam Narrative: Appearance: casual attire, fair hygiene, in NAD Behavior: calm Psychomotor: no agitation or retardation noted. Speech: mostly clear, normal rate/rhythm/volume, spontaneous TP: did not go into much detail TC: no overt delusions, future oriented Mood: better Affect: mildly irritable SI: denies HI: none VH/AH: no overt signs Insight/judgment: poor x 2. Memory/cog: alert, oriented to place, month, year and situation. Diagnostics Vital Signs (24Hr): Vital Signs - 24 hr 03/29/25 08:00 03/29/25 08:27 03/29/25 20:00 Temperature 98.0 F 98.0 F Pulse Rate 80 78 Respiratory Rate 18 18 Blood Pressure 138/83 138/83 144/73 H Pulse Oximetry 98 98 Oxygen Delivery Method Room Air Room Air BMI result Body Mass Index 24.0 Labs 03/21/25 08:04 Medications Medications Current Medications Acetaminophen (Acetaminophen 325 Mg Tablet) 650 mg PO Q6H PRN PRN Reason: Headache/Pain, Scale 1-10 Last Admin: 03/29/25 08:32 Dose: 650 mg Al Hydroxide/Mg Hydroxide (Magnesium Hydrox/Alum Hydrox 30 Ml Oral.Susp) 30 ml PO Q6H PRN PRN Reason: Heartburn/Nausea Atorvastatin Calcium (Atorvastatin Calcium 40 Mg Tablet) 40 mg PO BEDTIME JOHANNY Last Admin: 03/29/25 21:03 Dose: 40 mg Bupropion HCl (Bupropion Hcl Xl 150 Mg Tab.Er.24h) 150 mg PO DAILY JOHANNY Last Admin: 03/29/25 08:27 Dose: 150 mg Hydroxyzine HCl (Hydroxyzine Hcl 25 Mg Tablet) 25 mg PO Q6H PRN PRN Reason: mild anxiety Last Admin: 03/22/25 09:34 Dose: 25 mg Lidocaine (Lidocaine 4 % Patch Adh..Patch) 1 patch TRANSDERMA DAILY [facility]; Protocol Last Admin: 03/29/25 15:20 Dose: 1 patch Lisinopril (Lisinopril 5 Mg Tablet) 5 mg PO DAILY JOHANNY; Protocol Last Admin: 03/29/25 08:27 Dose: 5 mg Magnesium Hydroxide (Milk Of Magnesia 30 Ml Oral.Susp) 30 ml PO DAILY PRN PRN Reason: Constipation Mirtazapine (Mirtazapine 15 Mg Tablet) 15 mg PO BEDTIME JOHANNY Last Admin: 03/29/25 21:03 Dose: 15 mg Nicotine Polacrilex (Nicotine Polacrilex 2 Mg Gum) 2 mg BUCCAL Q2H PRN PRN Reason: Nicotine Cravings Risperidone (Risperidone 0.5 Mg Tablet) 0.5 mg PO BID JOHANNY Last Admin: 03/29/25 21:03 Dose: 0.5 mg Trazodone HCl (Trazodone Hcl 50 Mg Tablet) 50 mg PO BEDTIME MRX1 PRN PRN Reason: Insomnia Last Admin: 03/26/25 22:12 Dose: 50 mg Allergies Allergies Allergy/AdvReac Type Severity Reaction Status Date / Time morphine AdvReac Severe Unknown Verified 03/20/25 14:52 propoxyphene AdvReac Severe Unknown Verified 03/20/25 14:52 Assessment & Plan Assessment & Plan (1) Psychosis: Status: Acute Code(s): F29 - Unspecified psychosis not due to a substance or known physiological condition (2) Cognitive impairment: Status: Acute Code(s): R41.89 - Other symptoms and signs involving cognitive functions and awareness Assessment and Plan: pending work up including MRI reading with neuroquant, serum [id number] r/o AD, ROSSI also pending. Plan Mrs. Block is a 74 year-old woman with hx of depression, who presented to [facility] ED reporting depression and suicidal ideation in context of what seemed to be paranoid delusion of people talking about her. Per family, some recent episode of some psychosis back 5 years ago, clear memory/cognitive impairments for 3-4 years but no official dx or work up. It is unclear the etiology of later in life paranoid/psychosis in addition to cognitive/memory impairments, therefore differential include: AD (note that orientation seems to be intact which makes it less likely to be AD as paranoia in AD happens later in disease) or other type of dementia (primarily vascular dementia). Will order MRI with neuroquant. Pending MOCA/ACL. Will add tau 217 serum levels. Will also add ROSSI to rule out autoimmune condition. B12, folate levels also ordered. certainly heavy use of canabis does not help with psychosis/paranoia. CBC and CMP, UA all unremarkable and non contributory. Utox positive for cannabis. PLAN 1. Admit to S1, CV 2. start risperidone 0.5mg po BID. decrease wellbutrin 150mg po daily as it can worsened psychosis. 3. MRI w/neuroquant, serum [id number] (r/o atypical presentation of AD), ROSSI, B12, TSH. 4. OT assessment 5. aftercare planning 03/21:Continue current regimen and plans 03/23- calmer, less paranoid ideas. No SI/HI. tolerating risperidone 0.5mg po BID. pending MOCA/ACL. 03/24 pending MOCA/ACL. MRI with neuroquant shows atrophy in hypoccampus in 3 percentile suggestive of AD. Pending serum [id number]/amyloid. We discussed starting aricept to slow down progression of possible AD. We also discussed switching wellbutrin to remeron as antidepressant. No behavioral concerns. 03/25 continue tx. 03/26 continue tx. 03/27 continues to denied SI/HI. She presents less paranoid. may benefit from low dose lithium as staff reports periods of irritability. lithium 150mg po qhs. continue remeron 15mg po qhs. d/c wellbutrin. 03/28 continues to report improvement in mood. no si/hi. no overt psychosis. 03/29 continue tx. plan for dc next week, will check lithium level /2 qhs with renal func and TSH. 03/30--no changes Reason for continued inpatient stay Substantial Risk for: inability to function Time Spent With Patient Time: Total time managing care of this patient today ____ minutes.
[2025-03-30 08:00] VITALS: BP 133/81; PULSE 65; TEMP 36.8; O2SAT 98
[2025-03-30] MEDS: buPROPion HCl XL 150 MG TAB.ER.24H PO (08:25)
[2025-03-30] MEDS: Lidocaine 4 % Patch ADH..PATCH 1 PATCH TRANSDERMA (08:25)
[2025-03-30 20:00] VITALS: BP 124/69; PULSE 73; RESP 16; TEMP 36.9; O2SAT 97
[2025-03-31 08:10] VITALS: BP 133/71; PULSE 61; RESP 18; TEMP 36.4; O2SAT 96
[2025-03-31] MEDS: buPROPion HCl XL 150 MG TAB.ER.24H PO (08:36)
[2025-03-31] MEDS: Lidocaine 4 % Patch ADH..PATCH 1 PATCH TRANSDERMA (08:44)
--- NOTE | 2025-03-31 16:58 | P.PNPSI_ITS ---
Subjective Subjective Date of Service: 03/31/25 Reason For Visit: Unspecified Depressive disorder Subjective Notes: Conditional Voluntary Interim History: Pt reports she is feeling better in terms of depression. She denies SI/HI. We discussed some of the symptoms that seem to border in paranoia that brought her here and how those are better. recommendation was to decrease THC use. She has been taking medications. found kissing with peer- per staff. We discussed finding of cognitive and memory assessments. Medication Compliance: Yes Mental Status Exam Mental Status Exam Narrative: Appearance: casual attire, fair hygiene, in NAD Behavior: calm Psychomotor: no agitation or retardation noted. Speech: mostly clear, normal rate/rhythm/volume, spontaneous TP: did not go into much detail TC: no overt delusions, future oriented Mood: better Affect: mildly irritable SI: denies HI: none VH/AH: no overt signs Insight/judgment: poor x 2. Memory/cog: alert, oriented to place, month, year and situation. Diagnostics Vital Signs (24Hr): Vital Signs - 24 hr 03/30/25 20:00 03/31/25 08:10 Temperature 98.5 F 97.5 F Pulse Rate 73 61 Respiratory Rate 16 18 Blood Pressure 124/69 133/71 Pulse Oximetry 97 96 Oxygen Delivery Method Room Air Room Air BMI result Body Mass Index 24.0 Labs 03/21/25 08:04 Medications Medications Current Medications Acetaminophen (Acetaminophen 325 Mg Tablet) 650 mg PO Q6H PRN PRN Reason: Headache/Pain, Scale 1-10 Last Admin: 03/29/25 08:32 Dose: 650 mg Al Hydroxide/Mg Hydroxide (Magnesium Hydrox/Alum Hydrox 30 Ml Oral.Susp) 30 ml PO Q6H PRN PRN Reason: Heartburn/Nausea Atorvastatin Calcium (Atorvastatin Calcium 40 Mg Tablet) 40 mg PO BEDTIME JOHANNY Last Admin: 03/30/25 21:01 Dose: 40 mg Hydroxyzine HCl (Hydroxyzine Hcl 25 Mg Tablet) 25 mg PO Q6H PRN PRN Reason: mild anxiety Last Admin: 03/22/25 09:34 Dose: 25 mg Lidocaine (Lidocaine 4 % Patch Adh..Patch) 1 patch TRANSDERMA DAILY JOHANNY; Protocol Last Admin: 03/31/25 08:44 Dose: 1 patch Lisinopril (Lisinopril 5 Mg Tablet) 5 mg PO DAILY JOHANNY; Protocol Last Admin: 03/31/25 08:36 Dose: 5 mg Magnesium Hydroxide (Milk Of Magnesia 30 Ml Oral.Susp) 30 ml PO DAILY PRN PRN Reason: Constipation Mirtazapine (Mirtazapine 15 Mg Tablet) 15 mg PO BEDTIME JOHANNY Last Admin: 03/30/25 21:01 Dose: 15 mg Nicotine Polacrilex (Nicotine Polacrilex 2 Mg Gum) 2 mg BUCCAL Q2H PRN PRN Reason: Nicotine Cravings Risperidone (Risperidone 0.5 Mg Tablet) 0.5 mg PO BID JOHANNY Last Admin: 03/31/25 08:36 Dose: 0.5 mg Trazodone HCl (Trazodone Hcl 50 Mg Tablet) 50 mg PO BEDTIME MRX1 PRN PRN Reason: Insomnia Last Admin: 03/26/25 22:12 Dose: 50 mg Allergies Allergies Allergy/AdvReac Type Severity Reaction Status Date / Time morphine AdvReac Severe Unknown Verified 03/20/25 14:52 propoxyphene AdvReac Severe Unknown Verified 03/20/25 14:52 Assessment & Plan Assessment & Plan (1) Psychosis: Status: Acute Code(s): F29 - Unspecified psychosis not due to a substance or known physiological condition (2) Cognitive impairment: Status: Acute Code(s): R41.89 - Other symptoms and signs involving cognitive functions and awareness Assessment and Plan: pending work up including MRI reading with neuroquant, serum [id number] r/o AD, ROSSI also pending. Plan Mrs. Block is a 74 year-old woman with hx of depression, who presented to [facility] ED reporting depression and suicidal ideation in context of what seemed to be paranoid delusion of people talking about her. Per family, some recent episode of some psychosis back 5 years ago, clear memory/cognitive impairments for 3-4 years but no official dx or work up. It is unclear the etiology of later in life paranoid/psychosis in addition to cognitive/memory impairments, therefore differential include: AD (note that orientation seems to be intact which makes it less likely to be AD as paranoia in AD happens later in disease) or other type of dementia (primarily vascular dementia). Will order MRI with neuroquant. Pending MOCA/ACL. Will add tau 217 serum levels. Will also add ROSSI to rule out autoimmune condition. B12, folate levels also ordered. certainly heavy use of canabis does not help with psychosis/paranoia. CBC and CMP, UA all unremarkable and non contributory. Utox positive for cannabis. PLAN 1. Admit to S1, CV 2. start risperidone 0.5mg po BID. decrease wellbutrin 150mg po daily as it can worsened psychosis. 3. MRI w/neuroquant, serum [id number] (r/o atypical presentation of AD), ROSSI, B12, TSH. 4. OT assessment 5. aftercare planning 03/21:Continue current regimen and plans 03/23- calmer, less paranoid ideas. No SI/HI. tolerating risperidone 0.5mg po BID. pending MOCA/ACL. 03/24 pending MOCA/ACL. MRI with neuroquant shows atrophy in hypoccampus in 3 percentile suggestive of AD. Pending serum [id number]/amyloid. We discussed starting aricept to slow down progression of possible AD. We also discussed switching wellbutrin to remeron as antidepressant. No behavioral concerns. 03/25 continue tx. 03/26 continue tx. 03/27 continues to denied SI/HI. She presents less paranoid. may benefit from low dose lithium as staff reports periods of irritability. lithium 150mg po qhs. continue remeron 15mg po qhs. d/c wellbutrin. 03/28 continues to report improvement in mood. no si/hi. no overt psychosis. 03/29 continue tx. plan for dc next week, will check lithium level /2 qhs with renal func and TSH. 03/30--no changes 03/31 no depression, no overt psychosis or delusions. pt taking medications as prescribed. Reason for continued inpatient stay Substantial Risk for: inability to function Time Spent With Patient Time: Total time managing care of this patient today ____ minutes.
[2025-03-31 20:00] VITALS: BP 110/69; PULSE 63; RESP 16; TEMP 36.1; O2SAT 96
[2025-04-01 08:10] VITALS: BP 120/77; PULSE 64; RESP 18; TEMP 36.7; O2SAT 97
[2025-04-01] MEDS: Lidocaine 4 % Patch ADH..PATCH 1 PATCH TRANSDERMA (08:22)
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
== END 2025-04-01 12:45 | disposition home or self-care (01) | DRG 885 ==
PROVIDERS: Social Worker; Admitting Provider Psychiatry & Neurology Forensic Psychiatry; Visit Provider Psychiatry & Neurology Forensic Psychiatry
DX: F29 Unspecified psychosis not due to a substance or known physiological condition (principal); R45.851 Suicidal ideations; R41.89 Other symptoms and signs involving cognitive functions and awareness; I10 Essential (primary) hypertension; E78.5 Hyperlipidemia, unspecified; Z87.891 Personal history of nicotine dependence; Z79.899 Other long term (current) drug therapy
CPT/HCPCS: 36415; 70250; 70551; 71045; 74018; 76377; 80053; 80061; 82233; 82234; 82607; 82746; 83036; 84393; 84443; 86038; 86039

== ENCOUNTER → 2025-03-20 14:18 | Outpatient (BNV) | payer MEDICARE, SELFPAY | PROVIDERS: Admitting Provider Psychiatry & Neurology Forensic Psychiatry; Visit Provider Student in an Organized Health Care Education/Training Program | DX: Z00.8 Encounter for other general examination (principal) | CPT/HCPCS: 99223 ==

== ENCOUNTER → 2025-03-20 14:18 | Outpatient (BNV) | payer MEDICARE, SELFPAY | PROVIDERS: Admitting Provider Psychiatry & Neurology Forensic Psychiatry; Visit Provider Social Worker | DX: F29 Unspecified psychosis not due to a substance or known physiological condition (principal) | CPT/HCPCS: 90792 ==